=== PATIENT | male | born 1950 | race American Indian/Alaskan Native ===

== ENCOUNTER 2019-05-20 15:18 | Emergency (ER) | payer MEDICARE ==
--- NOTE | 2019-05-20 15:31 | Event Note ---
ED Screening Note Date of service: 05/20/19 Time: 15:27 ED Screening Note: This is a 68 y.o. M. that presents to the ER with decreased appetite, behavioral changes, and refusing to take medication. PMH dementia, bipolar, DM, HLD, schizoaffective disorder This initial assessment/diagnostic orders/clinical plan/treatment(s) is/are subject to change based on patients health status, clinical progression and re- assessment by fellow clinical providers in the ED. Further treatment and workup at subsequent clinical providers discretion. Patient/guardian urged not to elope from the ED as their condition may be serious if not clinically assessed and managed. Initial orders include: Labs
--- NOTE | 2019-05-20 16:40 | Emergency Department Report ---
ED Psych HPI - General Chief Complaint: Psych Stated Complaint: MH Time Seen by Provider: 05/20/19 15:27 Source: patient, family Mode of arrival: Ambulatory - History of Present Illness Initial Comments: 68-year-old male brought in by his daugher reports that he has been acting s trange he's been walking into the johnson attempting to get in the bed and with his grandson and granddaughter and is sexually aggressive towards them. Patient has a past medical history of bipolar disorder disorganized schizophrenia dementia and diabetes. He is currently compliant all his medications per his daughter. -: Gradual Improves With: none Worsens With: none Treatments Prior to Arrival: placed on mental he - Related Data Home Medications Medication Instructions Recorded Confirmed Last Taken Divalproex ER [Depakote ER] 250 mg PO DAILY 05/20/19 06/02/19 Unknown Divalproex ER [Depakote ER] 500 mg PO QHS 05/20/19 06/02/19 Unknown Donepezil [Aricept] 10 mg PO QHS 05/20/19 06/02/19 Unknown Furosemide [Lasix TAB] 40 mg PO BID 05/20/19 06/02/19 Unknown Simvastatin 20 mg PO QHS 05/20/19 06/02/19 Unknown Spironolactone [Aldactone] 12.5 mg PO QDAY 05/20/19 06/02/19 Unknown carvediloL [Coreg] 12.5 mg PO BID 05/20/19 06/02/19 Unknown glipiZIDE [Glucotrol] 5 mg PO BID 05/20/19 06/02/19 Unknown lisinopriL [Zestril TAB] 10 mg PO QDAY 05/20/19 06/02/19 Unknown metFORMIN [Glucophage] 500 mg PO BID 05/20/19 06/02/19 Unknown Previous Rx's Medication Instructions Recorded Last Taken Type PARoxetine [Paxil] 40 mg PO QDAY #60 tablet 05/25/19 Unknown Rx risperiDONE [RisperDAL] 1 mg PO BID #60 tablet 05/25/19 Unknown Rx traZODone [Desyrel] 50 mg PO QHS #30 tablet 05/25/19 Unknown Rx Allergies Allergy/AdvReac Type Severity Reaction Status Date / Time quinidine Allergy Unknown Verified 05/20/19 15:24 ED Review of Systems ROS: Stated complaint: MH Other details as noted in HPI Comment: All other systems reviewed and negative Constitutional: no symptoms reported Respiratory: no symptoms reported Endocrine: no symptoms reported Psychiatric: other. denies: auditory hallucinations, visual hallucinations, homicidal thoughts, suicidal thoughts ED Past Medical Hx - Past Medical History Previous Medical History?: Yes Hx Hypertension: Yes Hx Diabetes: Yes Hx Psychiatric Treatment: Yes (schizoaffective, bipolar) Hx Dementia: Yes Additional medical history: hypercholesterolemia, Insomnia, heart disease - Surgical History Past Surgical History?: Yes Additional Surgical History: aortic valve replacement - Social History Smoking Status: Never Smoker Substance Use Type: None - Medications Home Medications: Home Medications Medication Instructions Recorded Confirmed Last Taken Type Divalproex ER [Depakote ER] 250 mg PO DAILY 05/20/19 06/02/19 Unknown History Divalproex ER [Depakote ER] 500 mg PO QHS 05/20/19 06/02/19 Unknown History Donepezil [Aricept] 10 mg PO QHS 05/20/19 06/02/19 Unknown History Furosemide [Lasix TAB] 40 mg PO BID 05/20/19 06/02/19 Unknown History Simvastatin 20 mg PO QHS 05/20/19 06/02/19 Unknown History Spironolactone [Aldactone] 12.5 mg PO QDAY 05/20/19 06/02/19 Unknown History carvediloL [Coreg] 12.5 mg PO BID 05/20/19 06/02/19 Unknown History glipiZIDE [Glucotrol] 5 mg PO BID 05/20/19 06/02/19 Unknown History lisinopriL [Zestril TAB] 10 mg PO QDAY 05/20/19 06/02/19 Unknown History metFORMIN [Glucophage] 500 mg PO BID 05/20/19 06/02/19 Unknown History PARoxetine [Paxil] 40 mg PO QDAY #60 tablet 05/25/19 06/02/19 Unknown Rx risperiDONE [RisperDAL] 1 mg PO BID #60 tablet 05/25/19 06/02/19 Unknown Rx traZODone [Desyrel] 50 mg PO QHS #30 tablet 05/25/19 06/02/19 Unknown Rx ED Physical Exam - General Limitations: No Limitations General appearance: alert, in no apparent distress - Head Head exam: Present: atraumatic - Eye Eye exam: Present: normal appearance - ENT ENT exam: Present: normal exam - Neck Neck exam: Present: normal inspection - Respiratory Respiratory exam: Present: normal lung sounds bilaterally. Absent: respiratory distress, wheezes, rales, rhonchi - Cardiovascular Cardiovascular Exam: Present: regular rate, normal heart sounds - GI/Abdominal GI/Abdominal exam: Present: soft, normal bowel sounds. Absent: distended, tenderness, guarding, rebound - Rectal Rectal exam: Present: deferred - Extremities Exam Extremities exam: Present: normal inspection - Back Exam Back exam: Present: normal inspection - Neurological Exam Neurological exam: Present: alert (oriented x person and place) - Psychiatric Psychiatric exam: Present: flat affect - Skin Skin exam: Present: warm, dry, intact ED Course Vital Signs 05/20/19 05/20/19 15:27 20:00 Temperature 99.4 F 97.9 F Pulse Rate 64 97 H Respiratory 20 18 Rate Blood Pressure 130/73 Blood Pressure 131/74 [Right] O2 Sat by Pulse 98 96 Oximetry ED Medical Decision Making - Lab Data Result diagrams: 05/20/19 16:31 05/20/19 16:31 - Medical Decision Making 68 yo male with long hx of Bipolar disorder, Schizophrenia, and Diabetes. Resides with his daughter. Daughter reports increasing bizzare behaviour including defecating and wiping on johnson, attempting to get in the bed with his grandson and granddaughter and being sexually aggressive. Placed on Psych hold. Awaiting mental health evaluation. Care endorsed to Dr. Rodriguez. Critical Care Time: No Critical care attestation.: If time is entered above; I have spent that time in minutes in the direct care of this critically ill patient, excluding procedure time. ED Disposition Clinical Impression: Psychosis Qualifiers: Psychosis type: brief psychotic disorder Qualified Code(s): F23 - Brief psychotic disorder Disposition: DC/TX-65 PSY HOSP/PSY UNIT Is pt being admited?: No Does the pt Need Aspirin: No Condition: Stable Referrals: SONAM ELI [Other] - 3-5 Days
[2019-05-20 16:48] LABS: Basophils % (Auto) 0.3 % (0.0-1.8); Eosinophils # (Auto) 0.1 K/mm3 (0.0-0.4); Hematocrit 33.7 % (35.5-45.6); Hemoglobin 11.3 gm/dl (11.8-15.2); Lymphocytes # (Auto) 1.2 K/mm3 (1.2-5.4); Lymphocytes % (Auto) 16.2 % (13.4-35.0); Mean Corpuscular HGB Conc 34 % (32-34); Mean Corpuscular Volume 83 fl (84-94); Monocytes # (Auto) 0.9 K/mm3 (0.0-0.8); Monocytes % (Auto) 12.1 % (0.0-7.3); Platelet Count 254 K/mm3 (140-440); Red Blood Count 4.08 M/mm3 (3.65-5.03); Red Cell Distribution Width 16.6 % (13.2-15.2)
[2019-05-20 17:12] LABS: BUN/Creatinine Ratio 22; Blood Urea Nitrogen 22 mg/dL (9-20); Calcium 9.9 mg/dL (8.4-10.2); Hemolysis Index 9
[2019-05-20] MEDS ORDERED: ACETAMINOPHEN 325 MG TAB PO ONE (17:44)
[2019-05-20 22:50] VITALS: BP 131/74
== END 2019-05-20 22:50 ==
LOC: ED 15:18
DX: F20.1 Disorganized schizophrenia (principal); I10 Essential (primary) hypertension; E11.9 Type 2 diabetes mellitus without complications; F31.9 Bipolar disorder, unspecified; I51.9 Heart disease, unspecified; G47.00 Insomnia, unspecified; Z98.890 Other specified postprocedural states; Z79.899 Other long term (current) drug therapy; Z88.8 Allergy status to other drugs, medicaments and biological substances
CPT/HCPCS: 36415; 80048; 80320; 82962; 85025; G0480

== ENCOUNTER 2019-05-21 01:34 | Inpatient (IN) | payer MEDICARE ==
--- NOTE | 2019-05-21 07:46 | Consultation ---
History of Present Illness - Reason for Consult Consult date: 05/21/19 [employer]NAG[employer] Requesting physician: RYAN PRASAD - History of Present Illness Patient is a 68 year old male with hx of DM, CHF, HTN, HLD, schizophrenia, dementia, Admitted to [facility] for behavioral management. We are consulted to assist in the management. He reports nausea and vomiting. He denies any chest pain, abdominal pain or diarrhea. The nausea and vomiting he is very vague about it, there is no consistency. Treatment Plan Patient will be admitted for inpatient psychiatric evaluation, medication adjustment and close monitoring The patient's behavior, mood, sleep and appetite will be closely monitored. Patient will be enrolled in individual and group therapeutic sessions and encouraged to attend. Patient will be provided with a safe and structured environment. Patient's physical health needs will be addressed by the Hospitalist. Hospitalist Consulted Labs including CBC, CMP, Lipid profile and Hemoglobin A1C ordered Social Assessment will be completed and the [employer] Cartridge Tester will work with patient and family to ensure a suitable and safe disposition Medication adjustment will be made as clinically indicated Usual Wellness Hoahaoism/Preservation: - Start Trazodone 50 mg po QHS & 50 mg po QHS PRN between 10 PM & 2 AM for insomnia The patient agreed on the treatment plan, understood the risk, benefit, alternative treatment, potential consequence of no treatment, and gave informed consent. Past History Past Medical History: diabetes, hypertension, hyperlipidemia Past Surgical History: PTCA, Other Social history: no significant social history Family history: no significant family history Medications and Allergies Allergies Allergy/AdvReac Type Severity Reaction Status Date / Time quinidine Allergy Unknown Verified 05/20/19 15:24 Home Medications Medication Instructions Recorded Confirmed Last Taken Type ARIPiprazole 5 mg PO QDAY 05/20/19 05/21/19 Unknown History Divalproex ER [DepaKOTE ER] 250 mg PO DAILY 05/20/19 05/21/19 Unknown History Divalproex ER [DepaKOTE ER] 500 mg PO QHS 05/20/19 05/21/19 Unknown History Donepezil [Aricept] 10 mg PO QHS 05/20/19 05/21/19 Unknown History Furosemide [Lasix TAB] 40 mg PO BID 05/20/19 05/21/19 Unknown History Lisinopril [Zestril TAB] 10 mg PO QDAY 05/20/19 05/21/19 Unknown History PARoxetine HCl [Paroxetine] 30 mg PO DAILY 05/20/19 05/21/19 Unknown History Simvastatin 20 mg PO QHS 05/20/19 05/21/19 Unknown History Spironolactone [Aldactone] 12.5 mg PO QDAY 05/20/19 05/21/19 Unknown History carvediloL [Coreg] 12.5 mg PO BID 05/20/19 05/21/19 Unknown History glipiZIDE [Glucotrol] 5 mg PO BID 05/20/19 05/21/19 Unknown History metFORMIN [Glucophage] 500 mg PO BID 05/20/19 05/21/19 Unknown History Active Meds: Active Medications Aripiprazole (Aripiprazole) 5 mg PO QDAY [facility] Carvedilol (Coreg) 12.5 mg PO BID [facility] Divalproex Sodium (Depakote Er) 500 mg PO QHS [facility] Divalproex Sodium (Depakote Er) 250 mg PO DAILY [facility] Donepezil HCl (Aricept) 10 mg PO QHS [facility] Furosemide (Lasix) 40 mg PO BID [facility] Glipizide (Glucotrol) 5 mg PO BIDDIAB [facility] Lisinopril (Zestril) 10 mg PO QDAY@0800 [facility] Metformin HCl (Glucophage) 500 mg PO BIDDIAB [facility] Paroxetine HCl (Paxil) 30 mg PO QDAY [facility] Pravastatin Sodium (Pravachol) 40 mg PO QHS [facility] Spironolactone (Aldactone) 12.5 mg PO QDAY [facility] Trazodone HCl (Desyrel) 50 mg PO QHS [facility] Review of Systems All systems: negative Gastrointestinal: nausea, vomiting Exam - Constitutional General appearance: Present: no acute distress, well-nourished - EENT Eyes: Present: PERRL, EOM intact ENT: hearing intact, clear oral mucosa - Neck Neck: Present: supple, normal ROM - Respiratory Respiratory effort: normal Respiratory: bilateral: CTA - Cardiovascular Rhythm: regular Heart Sounds: Present: S1 & S2. Absent: systolic murmur - Extremities Extremities: no ischemia, pulses intact, pulses symmetrical, No edema, normal temperature, normal color, Full ROM Peripheral Pulses: within normal limits - Abdominal General gastrointestinal: Present: soft, non-tender, non-distended - Integumentary Integumentary: Present: clear, warm, dry - Musculoskeletal Musculoskeletal: strength equal bilaterally - Psychiatric Psychiatric: appropriate mood/affect, intact judgment & insight - Neurologic Neurologic: CNII-XII intact, moves all extremities - Allied Health Allied health notes reviewed: nursing, social work Assessment and Plan Patient is a 68 year old male with hx of DM, CHF, HTN, HLD, schizophrenia, dementia, Admitted to [facility] for behavioral management. We are consulted to assist in the management. He reports nausea and vomiting. He denies any chest pain, abdominal pain or diarrhea. The nausea and vomiting he is very vague about it, there is no consistency. Nausea, with vomiting, Probably gastroenteritis-now resolved DM CHF HTN HLD Schizophrenia Plan Continue current home meds Accucheck daily Check cbc and cmp, lipid profil and a1c Further recommendations based on labs Other management per the [facility] team DVT/GI Prophy
[2019-05-21] MEDS: metFORMIN 500 MG TAB PO SCH ×2 (10:15→18:12)
[2019-05-21] MEDS: SPIRONOLACTONE 25 MG TAB PO SCH (10:15)
[2019-05-21] MEDS: LISINOPRIL 10 MG TAB PO SCH (10:16)
[2019-05-21] MEDS: FUROSEMIDE 40 MG TAB PO SCH ×2 (10:16→21:27)
[2019-05-21] MEDS: PARoxetine 10 MG TAB PO SCH (10:16)
[2019-05-21] MEDS: glipiZIDE 5 MG TAB PO SCH ×2 (10:17→18:12)
[2019-05-21] MEDS: carvediloL 12.5 MG TAB PO SCH ×2 (10:17→21:27)
[2019-05-21] MEDS: DIVALPROEX ER 250 MG TAB PO SCH (10:17)
[2019-05-21] MEDS: ARIPiprazole 5 MG TAB PO SCH (10:17)
--- NOTE | 2019-05-21 11:53 | History and Physical Report ---
GP History & Physical - History of Present Illness Date of admission: 05/21/19 Date of Examination: 05/21/19 Reason for Admission: Danger to self Chief Complaint: bizarre, confused, and observed responding to internal stimuli at home History of Present Illness: The patient is a poor historian and unable to give details as to why he was admitted into the hospital. He says his daughter brought him here "because this was the best hosptial." He went on further to say he "vomited." He's A/O to person, and place. PAST PSYCHIATRIC HISTORY: Diagnoses: Schizophrenia, Demenia (per chart) Suicide attempts or Self-harm behavior: Denies Prior psychiatric hospitalizations: Denies Substance Abuse history: Denies Previous psychiatric medications tried: Denies Outpatient treatment: See's outpatient doctor (per nurse note) PAST MEDICAL HISTORY: None reported Family Psychiatric History None reported or documented SOCIAL HISTORY Marital Status: Living Arrangements: With Daughter Employment Status: Disabled Access to guns/weapons: Denies Education: "until about 15 years old" History of Abuse: Denies Legal History: Denies REVIEW OF SYSTEMS Constitutional: Negative for weight loss ENT: Negative for stridor Respiratory: Negative for cough or hemoptysis All other systems reviewed and are negative Diagnoses: Schizophrenia, Dementia Treatment Plan Patient will be admitted for inpatient psychiatric evaluation, medication adjustment and close monitoring The patient's behavior, mood, sleep and appetite will be closely monitored. Patient will be enrolled in individual and group therapeutic sessions and encouraged to attend. Patient will be provided with a safe and structured environment. Patient's physical health needs will be addressed by the Hospitalist. Hospitalist Consulted Labs including CBC, CMP, Lipid profile and Hemoglobin A1C ordered Social Assessment will be completed and the Electrical High Tension Tester will work with patient and family to ensure a suitable and safe disposition Medication adjustment will be made as clinically indicated Usual Wellness Jew/Preservation: - Start Trazodone 50 mg po QHS & 50 mg po QHS PRN between 10 PM & 2 AM for insomnia The patient agreed on the treatment plan, understood the risk, benefit, alternative treatment, potential consequence of no treatment, and gave informed consent. Legal Status: Voluntary Reaction to Hospitalization: Accepting Medications and Allergies Allergies Allergy/AdvReac Type Severity Reaction Status Date / Time quinidine Allergy Unknown Verified 05/20/19 15:24 Home Medications Medication Instructions Recorded Confirmed Last Taken Type ARIPiprazole 5 mg PO QDAY 05/20/19 05/21/19 Unknown History Divalproex ER [DepaKOTE ER] 250 mg PO DAILY 05/20/19 05/21/19 Unknown History Divalproex ER [DepaKOTE ER] 500 mg PO QHS 05/20/19 05/21/19 Unknown History Donepezil [Aricept] 10 mg PO QHS 05/20/19 05/21/19 Unknown History Furosemide [Lasix TAB] 40 mg PO BID 05/20/19 05/21/19 Unknown History Lisinopril [Zestril TAB] 10 mg PO QDAY 05/20/19 05/21/19 Unknown History PARoxetine HCl [Paroxetine] 30 mg PO DAILY 05/20/19 05/21/19 Unknown History Simvastatin 20 mg PO QHS 05/20/19 05/21/19 Unknown History Spironolactone [Aldactone] 12.5 mg PO QDAY 05/20/19 05/21/19 Unknown History carvediloL [Coreg] 12.5 mg PO BID 05/20/19 05/21/19 Unknown History glipiZIDE [Glucotrol] 5 mg PO BID 05/20/19 05/21/19 Unknown History metFORMIN [Glucophage] 500 mg PO BID 05/20/19 05/21/19 Unknown History Active Meds: Active Medications Aripiprazole (Aripiprazole) 5 mg PO QDAY [facility] Last Admin: 05/21/19 10:17 Dose: 5 mg Documented by: Carvedilol (Coreg) 12.5 mg PO BID [facility] Last Admin: 05/21/19 10:17 Dose: 12.5 mg Documented by: Divalproex Sodium (Depakote Er) 500 mg PO QHS [facility] Divalproex Sodium (Depakote Er) 250 mg PO DAILY [facility] Last Admin: 05/21/19 10:17 Dose: 250 mg Documented by: Donepezil HCl (Aricept) 10 mg PO QHS [facility] Furosemide (Lasix) 40 mg PO BID [facility] Last Admin: 05/21/19 10:16 Dose: 40 mg Documented by: Glipizide (Glucotrol) 5 mg PO BIDDIAB [facility] Last Admin: 05/21/19 10:17 Dose: 5 mg Documented by: Lisinopril (Zestril) 10 mg PO QDAY@0800 [facility] Last Admin: 05/21/19 10:16 Dose: 10 mg Documented by: Metformin HCl (Glucophage) 500 mg PO BIDDIAB [facility] Last Admin: 05/21/19 10:15 Dose: 500 mg Documented by: Paroxetine HCl (Paxil) 30 mg PO QDAY [facility] Last Admin: 05/21/19 10:16 Dose: 30 mg Documented by: Pravastatin Sodium (Pravachol) 40 mg PO QHS [facility] Spironolactone (Aldactone) 12.5 mg PO QDAY [facility] Last Admin: 05/21/19 10:15 Dose: 12.5 mg Documented by: Trazodone HCl (Desyrel) 50 mg PO QHS [facility] Substance History - Substance History Drug Use: none Alcohol Use: No (The patient denies use) Past psychiatric history - Past Medical History Past Medical History: hypertension Results - Results Labs/Vitals: Last Vital Signs Temp 98 F 05/21/19 10:17 Pulse 96 H 05/21/19 10:17 Resp 20 05/21/19 10:17 BP 117/62 05/21/19 10:17 Pulse Ox 97 05/21/19 10:17 Physical Examination - Constitutional Vitals: Vital Signs Temp Pulse Resp BP Pulse Ox 98 F 96 H 20 117/62 97 05/21/19 10:17 05/21/19 10:17 05/21/19 10:17 05/21/19 10:17 05/21/19 10:17 Temperature -Last 24 Hours Temperature 98 F General appearance: Present: no acute distress - EENT Eyes: Present: EOM intact ENT: hearing intact, clear oral mucosa - Neck Neck: Present: supple, normal ROM - Respiratory Respiratory effort: normal Mental Status Exam - Vital signs Last Vital Signs Temp 98 F 05/21/19 10:17 Pulse 96 H 05/21/19 10:17 Resp 20 05/21/19 10:17 BP 117/62 05/21/19 10:17 Pulse Ox 97 05/21/19 10:17 Physician Certification - Certification Statement Physician Certification Statement: This is an acknowledgement statement that ALEX CUTLER is a 68 year old M who requires inpatient psychiatric admission for treatment which could reasonably be expected to improve the patient's condition for Estimated period of time patient will need to remain in the hospital: [ ] Plan for post-hospital care: [ ]
[2019-05-21] MEDS: DIVALPROEX ER 500 MG TAB PO SCH (21:27)
[2019-05-21] MEDS: PRAVASTATIN 40 MG TAB PO SCH (21:27)
[2019-05-21] MEDS: traZODone 50 MG TAB PO SCH (21:27)
[2019-05-21] MEDS: DONEPEZIL 10 MG TAB PO SCH (21:27)
[2019-05-21] MEDS ORDERED: DEXTROSE 50% IN WATER (25GM) 50 ML SYRINGE IV PRN (21:36)
[2019-05-21] MEDS ORDERED: INSULIN LISPRO 100 UNIT/ML SUB-Q SCH (22:00)
[2019-05-21] MEDS: INSULIN LISPRO 100 UNIT/ML SUB-Q SCH (22:02)
[2019-05-22] MEDS: FUROSEMIDE 40 MG TAB PO SCH ×2 (06:10→17:34)
[2019-05-22] MEDS: INSULIN LISPRO 100 UNIT/ML SUB-Q SCH ×4 (08:41→22:02)
--- NOTE | 2019-05-22 09:35 | Progress Note ---
Subjective Date of service: 05/22/19 Subjective Comment: Medical records reviewed and patient's progress was discussed with unit staff. Nursing staff states the patient is alert and oriented x3, calm and cooperative, denies SI/HI, denies A/V/H, In my interview with the patient this morning, the patient is lying in bed. Awake. He's oriented x 2. He thinks he's in the "[facility]." He says his night went "fine" and he feels "fine." He says his appetite has been "pretty good." Mr Encarnacion denies any hallucinations. He also denies SI/HI. Review of Symptoms: Constitutional: Negative for weight loss ENT: Negative for stridor Respiratory: Negative for cough or hemoptysis All other systems reviewed and are negative MSE Appearance: Wearing appropriate clothing. In bed Behavior: Pleasant, calm and cooperative. Mood: "fine" Affect: Congruent with stated mood Thought Process: Oriented x 2 Speech: Normal rate. Thought Content Harmfulness Denies SI/HI Hallucinations: patient denies Delusions: none elicited Consciousness: alert. Cognition/Memory: confused Insight/Judgment: Limited. Assessment Psychosis Treatment Plan Due to the psychiatric conditions and treatment listed in the Assessment and Plan - the patient requires continued hospitalization. Will continue inpatient treatment to allow for medication adjustment and monitoring. Will continue q15 min safety checks. Will encourage the use of environmental modifications and non-pharmacologic approaches for the management of behavioral and psychological symptoms. Medication adjustment made today: No changes made to medications Will continue current psych medications Monitor for medication side effects. The patient will continue on medications for physical illnesses, and Hospitalist will closely monitor these Continue intensive physical and occupational therapies. Monitor patient's mood, sleep, appetite, and behavior closely. Encourage patient to participate in individual and group therapeutic sessions on the [place]. Will provide a safe and therapeutic environment for patient. Estimated length of stay 2 days Medications and Allergies Allergies Allergy/AdvReac Type Severity Reaction Status Date / Time quinidine Allergy Unknown Verified 05/20/19 15:24 Home Medications Medication Instructions Recorded Confirmed Last Taken Type ARIPiprazole 5 mg PO QDAY 05/20/19 05/21/19 Unknown History Divalproex ER [DepaKOTE ER] 250 mg PO DAILY 05/20/19 05/21/19 Unknown History Divalproex ER [DepaKOTE ER] 500 mg PO QHS 05/20/19 05/21/19 Unknown History Donepezil [Aricept] 10 mg PO QHS 05/20/19 05/21/19 Unknown History Furosemide [Lasix TAB] 40 mg PO BID 05/20/19 05/21/19 Unknown History Lisinopril [Zestril TAB] 10 mg PO QDAY 05/20/19 05/21/19 Unknown History PARoxetine HCl [Paroxetine] 30 mg PO DAILY 05/20/19 05/21/19 Unknown History Simvastatin 20 mg PO QHS 05/20/19 05/21/19 Unknown History Spironolactone [Aldactone] 12.5 mg PO QDAY 05/20/19 05/21/19 Unknown History carvediloL [Coreg] 12.5 mg PO BID 05/20/19 05/21/19 Unknown History glipiZIDE [Glucotrol] 5 mg PO BID 05/20/19 05/21/19 Unknown History metFORMIN [Glucophage] 500 mg PO BID 05/20/19 05/21/19 Unknown History Active Meds: Active Medications Aripiprazole (Aripiprazole) 5 mg PO QDAY [facility] Last Admin: 05/21/19 10:17 Dose: 5 mg Documented by: Carvedilol (Coreg) 12.5 mg PO BID [facility] Last Admin: 05/21/19 21:27 Dose: 12.5 mg Documented by: Dextrose (D50w (25gm) Syringe) 0 ml IV Q30MIN PRN; Protocol PRN Reason: Hypoglycemia Divalproex Sodium (Depakote Er) 500 mg PO QHS [facility] Last Admin: 05/21/19 21:27 Dose: 500 mg Documented by: Divalproex Sodium (Depakote Er) 250 mg PO DAILY [facility] Last Admin: 05/21/19 10:17 Dose: 250 mg Documented by: Donepezil HCl (Aricept) 10 mg PO QHS [facility] Last Admin: 05/21/19 21:27 Dose: 10 mg Documented by: Furosemide (Lasix) 40 mg PO 0600,1700 [facility] Last Admin: 05/22/19 06:10 Dose: 40 mg Documented by: Glipizide (Glucotrol) 5 mg PO BIDDIAB [facility] Last Admin: 05/21/19 18:12 Dose: 5 mg Documented by: Insulin Human Lispro (Humalog) 0 unit SUB-Q [facility]; Protocol Last Admin: 05/22/19 08:41 Dose: Not Given Documented by: Lisinopril (Zestril) 10 mg PO QDAY@0800 [facility] Last Admin: 05/21/19 10:16 Dose: 10 mg Documented by: Metformin HCl (Glucophage) 500 mg PO BIDDIAB [facility] Last Admin: 05/21/19 18:12 Dose: 500 mg Documented by: Paroxetine HCl (Paxil) 30 mg PO QDAY [facility] Last Admin: 05/21/19 10:16 Dose: 30 mg Documented by: Pravastatin Sodium (Pravachol) 40 mg PO QHS [facility] Last Admin: 05/21/19 21:27 Dose: 40 mg Documented by: Spironolactone (Aldactone) 12.5 mg PO QDAY [facility] Last Admin: 05/21/19 10:15 Dose: 12.5 mg Documented by: Trazodone HCl (Desyrel) 50 mg PO QHS [facility] Last Admin: 05/21/19 21:27 Dose: 50 mg Documented by: Results - Results Labs/Vitals: Laboratory Last Values POC Glucose 120 (70-105) H 05/22/19 06:32 Last Vital Signs Temp 98.2 F 05/21/19 19:46 Pulse 85 05/21/19 21:27 Resp 20 05/21/19 19:46 BP 115/63 05/21/19 21:27 Pulse Ox 100 05/21/19 19:46
[2019-05-22] MEDS: metFORMIN 500 MG TAB PO SCH ×3 (10:06→17:34)
[2019-05-22] MEDS: SPIRONOLACTONE 25 MG TAB PO SCH (10:07)
[2019-05-22] MEDS: LISINOPRIL 10 MG TAB PO SCH (10:07)
[2019-05-22] MEDS: DIVALPROEX ER 250 MG TAB PO SCH (10:08)
[2019-05-22] MEDS: PARoxetine 10 MG TAB PO SCH (10:08)
[2019-05-22] MEDS: glipiZIDE 5 MG TAB PO SCH ×2 (10:08→17:34)
[2019-05-22] MEDS: ARIPiprazole 5 MG TAB PO SCH (10:09)
[2019-05-22] MEDS: carvediloL 12.5 MG TAB PO SCH ×2 (10:09→21:58)
[2019-05-22] MEDS: traZODone 50 MG TAB PO SCH (21:59)
[2019-05-22] MEDS: DIVALPROEX ER 500 MG TAB PO SCH (21:59)
[2019-05-22] MEDS: DONEPEZIL 10 MG TAB PO SCH (22:00)
[2019-05-22] MEDS: PRAVASTATIN 40 MG TAB PO SCH (22:01)
[2019-05-23] MEDS: FUROSEMIDE 40 MG TAB PO SCH ×2 (05:28→18:20)
--- NOTE | 2019-05-23 09:44 | Progress Note ---
Subjective Date of service: 05/23/19 Subjective Comment: Medical records reviewed and patient's progress was discussed with unit staff. Nursing staff states the patient is compliant still unable to give any history into his care. Remains calm cooperative and redirectable. Appetite good and no complaints of pain. In my interview with the patient this morning, the patient is lying in bed. Awake. He is oriented x 3 with periods of confusion. He says his appetite is good and his night went "fine." Mr. Encarnacion denies SI/HI or hallucinations of any kind. He says his mood is "fine" and asked if he was going home. Review of Symptoms: Constitutional: Negative for weight loss ENT: Negative for stridor Respiratory: Negative for cough or hemoptysis All other systems reviewed and are negative MSE Appearance: Wearing appropriate clothing. In bed Behavior: Pleasant, calm and cooperative. Mood: "fine" Affect: Congruent with stated mood Thought Process: Oriented x 2 Speech: Normal rate. Thought Content Harmfulness Denies SI/HI Hallucinations: patient denies Delusions: none elicited Consciousness: alert. Cognition/Memory: confused Insight/Judgment: Limited. Assessment Psychosis Treatment Plan Due to the psychiatric conditions and treatment listed in the Assessment and Plan - the patient requires continued hospitalization. Will continue inpatient treatment to allow for medication adjustment and monitoring. Will continue q15 min safety checks. Will encourage the use of environmental modifications and non-pharmacologic approaches for the management of behavioral and psychological symptoms. Medication adjustment made today: See orders Will continue current psych medications Monitor for medication side effects. The patient will continue on medications for physical illnesses, and Hospitalist will closely monitor these Continue intensive physical and occupational therapies. Monitor patient's mood, sleep, appetite, and behavior closely. Encourage patient to participate in individual and group therapeutic sessions on the [place]. Will provide a safe and therapeutic environment for patient. Estimated length of stay 2 days Medications and Allergies Allergies Allergy/AdvReac Type Severity Reaction Status Date / Time quinidine Allergy Unknown Verified 05/20/19 15:24 Home Medications Medication Instructions Recorded Confirmed Last Taken Type ARIPiprazole 5 mg PO QDAY 05/20/19 05/21/19 Unknown History Divalproex ER [DepaKOTE ER] 250 mg PO DAILY 05/20/19 05/21/19 Unknown History Divalproex ER [DepaKOTE ER] 500 mg PO QHS 05/20/19 05/21/19 Unknown History Donepezil [Aricept] 10 mg PO QHS 05/20/19 05/21/19 Unknown History Furosemide [Lasix TAB] 40 mg PO BID 05/20/19 05/21/19 Unknown History Lisinopril [Zestril TAB] 10 mg PO QDAY 05/20/19 05/21/19 Unknown History PARoxetine HCl [Paroxetine] 30 mg PO DAILY 05/20/19 05/21/19 Unknown History Simvastatin 20 mg PO QHS 05/20/19 05/21/19 Unknown History Spironolactone [Aldactone] 12.5 mg PO QDAY 05/20/19 05/21/19 Unknown History carvediloL [Coreg] 12.5 mg PO BID 05/20/19 05/21/19 Unknown History glipiZIDE [Glucotrol] 5 mg PO BID 05/20/19 05/21/19 Unknown History metFORMIN [Glucophage] 500 mg PO BID 05/20/19 05/21/19 Unknown History Active Meds: Active Medications Aripiprazole (Aripiprazole) 5 mg PO QDAY [facility] Last Admin: 05/22/19 10:09 Dose: 5 mg Documented by: Carvedilol (Coreg) 12.5 mg PO BID [facility] Last Admin: 05/22/19 21:58 Dose: 12.5 mg Documented by: Dextrose (D50w (25gm) Syringe) 0 ml IV Q30MIN PRN; Protocol PRN Reason: Hypoglycemia Divalproex Sodium (Depakote Er) 500 mg PO QHS [facility] Last Admin: 05/22/19 21:59 Dose: 500 mg Documented by: Divalproex Sodium (Depakote Er) 250 mg PO DAILY [facility] Last Admin: 05/22/19 10:08 Dose: 250 mg Documented by: Donepezil HCl (Aricept) 10 mg PO QHS [facility] Last Admin: 05/22/19 22:00 Dose: 10 mg Documented by: Furosemide (Lasix) 40 mg PO 0600,1700 [facility] Last Admin: 05/23/19 05:28 Dose: 40 mg Documented by: Glipizide (Glucotrol) 5 mg PO BIDDIAB [facility] Last Admin: 05/22/19 17:34 Dose: 5 mg Documented by: Insulin Human Lispro (Humalog) [address] [facility]; Protocol Last Admin: 05/22/19 22:02 Dose: Not Given Documented by: Lisinopril (Zestril) 10 mg PO QDAY@0800 [facility] Last Admin: 05/22/19 10:07 Dose: Not Given Documented by: Metformin HCl (Glucophage) 500 mg PO BIDDIAB [facility] Last Admin: 05/22/19 17:34 Dose: 500 mg Documented by: Paroxetine HCl (Paxil) 30 mg PO QDAY [facility] Last Admin: 05/22/19 10:08 Dose: 30 mg Documented by: Pravastatin Sodium (Pravachol) 40 mg PO QHS [facility] Last Admin: 05/22/19 22:01 Dose: 40 mg Documented by: Spironolactone (Aldactone) 12.5 mg PO QDAY [facility] Last Admin: 05/22/19 10:07 Dose: 12.5 mg Documented by: Trazodone HCl (Desyrel) 50 mg PO QHS [facility] Last Admin: 05/22/19 21:59 Dose: 50 mg Documented by: Results - Results Labs/Vitals: Laboratory Last Values POC Glucose 165 (70-105) H 05/23/19 09:14 Last Vital Signs Temp 98.0 F 05/22/19 19:47 Pulse 76 05/22/19 21:58 Resp 20 05/22/19 19:47 BP 144/65 05/22/19 21:58 Pulse Ox 98 05/22/19 19:47
[2019-05-23] MEDS: DIVALPROEX ER 250 MG TAB PO SCH (10:32)
[2019-05-23] MEDS: glipiZIDE 5 MG TAB PO SCH ×2 (10:32→18:44)
[2019-05-23] MEDS: PARoxetine 10 MG TAB PO SCH (10:32)
[2019-05-23] MEDS: metFORMIN 500 MG TAB PO SCH ×2 (10:44→18:20)
[2019-05-23] MEDS: SPIRONOLACTONE 25 MG TAB PO SCH (10:46)
[2019-05-23] MEDS: INSULIN LISPRO 100 UNIT/ML SUB-Q SCH ×4 (10:49→21:38)
[2019-05-23] MEDS: LISINOPRIL 10 MG TAB PO SCH (10:53)
[2019-05-23] MEDS: carvediloL 12.5 MG TAB PO SCH ×2 (12:56→21:19)
[2019-05-23] MEDS: risperiDONE 0.25 MG TAB PO SCH ×2 (12:56→21:18)
[2019-05-23] MEDS: DONEPEZIL 10 MG TAB PO SCH (21:18)
[2019-05-23] MEDS: traZODone 50 MG TAB PO SCH (21:18)
[2019-05-23] MEDS: DIVALPROEX ER 500 MG TAB PO SCH (21:19)
[2019-05-23] MEDS: PRAVASTATIN 40 MG TAB PO SCH (21:19)
[2019-05-24] MEDS: FUROSEMIDE 40 MG TAB PO SCH ×2 (05:45→16:54)
--- NOTE | 2019-05-24 08:42 | Progress Note ---
Subjective Date of service: 05/24/19 Subjective Comment: Medical records reviewed and patient's progress was discussed with unit staff. Nursing staff states the patient is medication compliant, good appetite, able to make needs known, withdrawn to self, no interaction with peers, alert and orien paula x3, calm and cooperative, denies SI/HI, denies A/V/H, denies pain, no behavioral issues In my interview with the patient this morning, the patient is lying in bed. Awake. He is and slighly confused, and answers are very brief. The patient states he feels "fine, I'm just really sleepy." Mr. Encarnacion says he slept good and his appetite is good. He denies SI/HI or hallucinations of any kind. Review of Symptoms: Constitutional: Negative for weight loss ENT: Negative for stridor Respiratory: Negative for cough or hemoptysis All other systems reviewed and are negative MSE Appearance: Wearing appropriate clothing. In bed Behavior: calm and cooperative. Mood: "fine" Affect: Congruent with stated mood Thought Process: Oriented x 2 Speech: Normal rate. Thought Content Harmfulness Denies SI/HI Hallucinations: patient denies Delusions: none elicited Consciousness: alert. Cognition/Memory: confused Insight/Judgment: Limited. Assessment Psychosis Treatment Plan Due to the psychiatric conditions and treatment listed in the Assessment and Plan - the patient requires continued hospitalization. Will continue inpatient treatment to allow for medication adjustment and monitoring. Will continue q15 min safety checks. Will encourage the use of environmental modifications and non-pharmacologic approaches for the management of behavioral and psychological symptoms. Medication adjustment made today: Increased paxil to decrease underlying depression Will continue current psych medications Monitor for medication side effects. The patient will continue on medications for physical illnesses, and Hospitalist will closely monitor these Continue intensive physical and occupational therapies. Monitor patient's mood, sleep, appetite, and behavior closely. Encourage patient to participate in individual and group therapeutic sessions on the [place]. Will provide a safe and therapeutic environment for patient. Estimated length of stay 2 days Medications and Allergies Allergies Allergy/AdvReac Type Severity Reaction Status Date / Time quinidine Allergy Unknown Verified 05/20/19 15:24 Home Medications Medication Instructions Recorded Confirmed Last Taken Type ARIPiprazole 5 mg PO QDAY 05/20/19 05/21/19 Unknown History Divalproex ER [DepaKOTE ER] 250 mg PO DAILY 05/20/19 05/21/19 Unknown History Divalproex ER [DepaKOTE ER] 500 mg PO QHS 05/20/19 05/21/19 Unknown History Donepezil [Aricept] 10 mg PO QHS 05/20/19 05/21/19 Unknown History Furosemide [Lasix TAB] 40 mg PO BID 05/20/19 05/21/19 Unknown History Lisinopril [Zestril TAB] 10 mg PO QDAY 05/20/19 05/21/19 Unknown History PARoxetine HCl [Paroxetine] 30 mg PO DAILY 05/20/19 05/21/19 Unknown History Simvastatin 20 mg PO QHS 05/20/19 05/21/19 Unknown History Spironolactone [Aldactone] 12.5 mg PO QDAY 05/20/19 05/21/19 Unknown History carvediloL [Coreg] 12.5 mg PO BID 05/20/19 05/21/19 Unknown History glipiZIDE [Glucotrol] 5 mg PO BID 05/20/19 05/21/19 Unknown History metFORMIN [Glucophage] 500 mg PO BID 05/20/19 05/21/19 Unknown History Active Meds: Active Medications Carvedilol (Coreg) 12.5 mg PO BID [facility] Last Admin: 05/23/19 21:19 Dose: 12.5 mg Documented by: Dextrose (D50w (25gm) Syringe) 0 ml IV Q30MIN PRN; Protocol PRN Reason: Hypoglycemia Divalproex Sodium (Depakote Er) 500 mg PO QHS [facility] Last Admin: 05/23/19 21:19 Dose: 500 mg Documented by: Divalproex Sodium (Depakote Er) 250 mg PO DAILY [facility] Last Admin: 05/23/19 10:32 Dose: 250 mg Documented by: Donepezil HCl (Aricept) 10 mg PO QHS [facility] Last Admin: 05/23/19 21:18 Dose: 10 mg Documented by: Furosemide (Lasix) 40 mg PO 0600,1700 [facility] Last Admin: 05/24/19 05:45 Dose: 40 mg Documented by: Glipizide (Glucotrol) 5 mg PO BIDDIAB [facility] Last Admin: 05/23/19 18:44 Dose: 5 mg Documented by: Insulin Human Lispro (Humalog) 0 unit SUB-Q [facility]; Protocol Last Admin: 05/23/19 21:38 Dose: Not Given Documented by: Lisinopril (Zestril) 10 mg PO QDAY@0800 [facility] Last Admin: 05/23/19 10:53 Dose: 10 mg Documented by: Metformin HCl (Glucophage) 500 mg PO BIDDIAB [facility] Last Admin: 05/23/19 18:20 Dose: 500 mg Documented by: Paroxetine HCl (Paxil) 30 mg PO QDAY [facility] Last Admin: 05/23/19 10:32 Dose: 30 mg Documented by: Pravastatin Sodium (Pravachol) 40 mg PO QHS [facility] Last Admin: 05/23/19 21:19 Dose: 40 mg Documented by: Risperidone (Risperdal) 1 mg PO BID [facility] Last Admin: 05/23/19 21:18 Dose: 1 mg Documented by: Spironolactone (Aldactone) 12.5 mg PO QDAY [facility] Last Admin: 05/23/19 10:46 Dose: 12.5 mg Documented by: Trazodone HCl (Desyrel) 50 mg PO QHS [facility] Last Admin: 05/23/19 21:18 Dose: 50 mg Documented by: Results - Results Labs/Vitals: Laboratory Last Values POC Glucose 153 (70-105) H 05/24/19 06:25 Last Vital Signs Temp 97.8 F 05/23/19 22:00 Pulse 75 05/23/19 22:00 Resp 18 05/23/19 22:00 BP 144/87 05/23/19 22:00 Pulse Ox 100 05/23/19 22:00
[2019-05-24] MEDS: INSULIN LISPRO 100 UNIT/ML SUB-Q SCH ×4 (09:12→21:27)
[2019-05-24] MEDS: glipiZIDE 5 MG TAB PO SCH ×2 (09:13→16:54)
[2019-05-24] MEDS: metFORMIN 500 MG TAB PO SCH ×2 (09:15→16:54)
[2019-05-24] MEDS: DIVALPROEX ER 250 MG TAB PO SCH (09:17)
[2019-05-24] MEDS: LISINOPRIL 10 MG TAB PO SCH (09:20)
[2019-05-24] MEDS: carvediloL 12.5 MG TAB PO SCH ×2 (09:21→21:25)
[2019-05-24] MEDS: risperiDONE 0.25 MG TAB PO SCH ×2 (09:39→21:25)
[2019-05-24] MEDS: SPIRONOLACTONE 25 MG TAB PO SCH (09:41)
[2019-05-24] MEDS: PARoxetine 20 MG TAB PO SCH (09:42)
[2019-05-24] MEDS: DIVALPROEX ER 500 MG TAB PO SCH (21:24)
[2019-05-24] MEDS: traZODone 50 MG TAB PO SCH (21:24)
[2019-05-24] MEDS: DONEPEZIL 10 MG TAB PO SCH (21:25)
[2019-05-24] MEDS: PRAVASTATIN 40 MG TAB PO SCH (21:25)
[2019-05-25] MEDS: FUROSEMIDE 40 MG TAB PO SCH ×2 (05:38→16:57)
--- NOTE | 2019-05-25 09:20 | Discharge Summary ---
Providers - Providers Date of Admission: 05/21/19 01:50 Date of discharge: 05/25/19 Attending physician: RYAN PRASAD MD 05/21/19 21:37 Consult to Dietitian/Nutrition [CONS] Routine Physician Instructions: Reason For Exam: Reason for Consult: Diet education 05/22/19 08:53 Consult to Physician [CONS] Routine Comment: Consulting Provider: CLAUDIA LOZANO Physician Instructions: MARTA Reason For Exam: H&P/MEDICAL MANAGEMENT Primary care physician: UNIT OPERATOR Hospitalization Reason for admission: bizarre, confused, and observed responding to internal stimuli at home Condition: Stable Hospital course: The patient was provided inpatient psychiatric treatment with safe and supportive environment, group/individual therapy, psychiatric medication, medication adjustment, adverse effect monitor, medical evaluation, medical treatment, social service assessment, social support meeting, placement assessment and psycho-education. The patients mood, cognition, behavior, motivation, compliance to treatment and appreciation on family/social support are improved and stabilized. At the time of discharge, the patient had no suicidal ideas, no homicidal ideas, no aggressive thoughts, no endangering behavior and no debilitating adverse effects. The patient agreed on the treatment plan, understood the risk, benefit, alternative treatment, potential consequence of no treatment, and gave informed consent. Disposition: DC-01 TO HOME OR SELFCARE Time spent for discharge: 34 minutes Allergies/Adverse Reactions: Allergies quinidine Allergy (Verified 05/20/19 15:24) Unknown Vital Signs: Last Vital Signs Temp 98.1 F 05/24/19 19:25 Pulse 109 H 05/24/19 21:25 Resp 17 05/24/19 19:25 BP 129/72 05/24/19 21:25 Pulse Ox 98 05/24/19 19:24 Last Lab: Laboratory Last Values POC Glucose 179 (70-105) H 05/25/19 07:08 Core Measure Documentation - Palliative Care Palliative Care/ Comfort Measures: Not Applicable - Core Measures Any of the following diagnoses?: none Exam - Constitutional Vitals: Temp Pulse Resp BP Pulse Ox 98.1 F 109 H 17 129/72 98 05/24/19 19:25 05/24/19 21:25 05/24/19 19:25 05/24/19 21:25 05/24/19 19:24 General appearance: Present: no acute distress, well-nourished - EENT Eyes: Present: PERRL, EOM intact ENT: hearing intact, clear oral mucosa - Neck Neck: Present: supple, normal ROM - Respiratory Respiratory effort: normal Plan Activity: advance as tolerated Weight Bearing Status: Weight Bear as Tolerated Care Plan Goals: Maintain good and stable mental health Plan of Treatment: The patient should be compliant with medications, not to use drugs and not to drink alcohol. The patient understands that if suicidal ideas, homicidal ideas, or any endangering thoughts arise, the patient should immediately seek for emergent assistance including but not limited to crisis hot line and emergency room. Follow up with outpatient Psychiatrist and PCP within 7 - 14 days of discharge. Health Concerns: none Assessment: acute psychosis Follow up with: PRIMARY CARE, [Primary Care Provider] - 7 Days Prescriptions: traZODone [Desyrel] 50 mg PO QHS #30 tablet PARoxetine [Paxil] 40 mg PO QDAY #60 tablet risperiDONE [RisperDAL] 1 mg PO BID #60 tablet
[2019-05-25 09:32] VITALS: BP 135/68
[2019-05-25] MEDS: INSULIN LISPRO 100 UNIT/ML SUB-Q SCH ×3 (09:33→15:44)
[2019-05-25] MEDS: DIVALPROEX ER 250 MG TAB PO SCH (09:34)
[2019-05-25] MEDS: LISINOPRIL 10 MG TAB PO SCH (09:34)
[2019-05-25] MEDS: metFORMIN 500 MG TAB PO SCH ×2 (09:34→16:57)
[2019-05-25] MEDS: SPIRONOLACTONE 25 MG TAB PO SCH (09:35)
[2019-05-25] MEDS: carvediloL 12.5 MG TAB PO SCH (09:35)
[2019-05-25] MEDS: glipiZIDE 5 MG TAB PO SCH ×2 (09:35→16:57)
[2019-05-25] MEDS: PARoxetine 20 MG TAB PO SCH (09:35)
[2019-05-25] MEDS ORDERED: risperiDONE 1 MG TAB PO SCH (10:00)
== END 2019-05-25 18:12 | disposition home or self-care (01) | DRG 885 ==
LOC: UNDOADMIN 01:34 → 3A 01:34 → 5A 01:50
PROVIDERS: ADMIT Psychiatry & Neurology Psychiatry; ATTEND Psychiatry & Neurology Psychiatry
DX: F23 Brief psychotic disorder (principal); I11.0 Hypertensive heart disease with heart failure; F03.90 Unspecified dementia, unspecified severity, without behavioral disturbance, psychotic disturbance, mood disturbance, and anxiety; E11.9 Type 2 diabetes mellitus without complications; E78.5 Hyperlipidemia, unspecified; I50.9 Heart failure, unspecified; Z98.61 Coronary angioplasty status; Z79.899 Other long term (current) drug therapy
CPT/HCPCS: 36415; 80048; 80320; 82962; 85025; G0378; A9270-GY; G0480; J1815

== ENCOUNTER 2019-05-31 08:57 | Emergency (ER) | payer MEDICARE ==
[2019-05-31 11:43] LABS: Basophils # (Auto) 0.1 K/mm3 (0.0-0.1); Basophils % (Auto) 0.8 % (0.0-1.8); Eosinophils % (Auto) 0.3 % (0.0-4.3); Hematocrit 32.8 % (35.5-45.6); Lymphocytes # (Auto) 1.6 K/mm3 (1.2-5.4); Mean Corpuscular HGB Conc 34 % (32-34); Mean Corpuscular Volume 82 fl (84-94); Monocytes # (Auto) 0.6 K/mm3 (0.0-0.8); Monocytes % (Auto) 7.3 % (0.0-7.3); Platelet Count 307 K/mm3 (140-440); Red Blood Count 3.98 M/mm3 (3.65-5.03); Red Cell Distribution Width 16.2 % (13.2-15.2)
[2019-05-31 12:04] LABS: BUN/Creatinine Ratio 21; Blood Urea Nitrogen 23 mg/dL (9-20); Calcium 9.7 mg/dL (8.4-10.2); Hemolysis Index 62
--- NOTE | 2019-05-31 18:57 | Event Note ---
ED Screening Note ED Screening Note: states he has been having urinary incontinence +visual hallucinations woke up this morning covered in feces for a week no SI no HI PMHx schizophrenia, bipolar, HLD, CAD, aortic valve replacement This initial assessment/diagnostic orders/clinical plan/treatment(s) is/are subject to change based on patients health status, clinical progression and re- assessment by fellow clinical providers in the ED. Further treatment and workup at subsequent clinical providers discretion. Patient/guardian urged not to elope from the ED as their condition may be serious if not clinically assessed and managed. Initial orders include: mental health clearance
[2019-05-31 19:54] LABS: Basophils % (Auto) 0.5 % (0.0-1.8); Eosinophils # (Auto) 0.1 K/mm3 (0.0-0.4); Eosinophils % (Auto) 0.7 % (0.0-4.3); Hematocrit 36.2 % (35.5-45.6); Lymphocytes # (Auto) 2.4 K/mm3 (1.2-5.4); Lymphocytes % (Auto) 34.6 % (13.4-35.0); Mean Corpuscular HGB Conc 33 % (32-34); Mean Corpuscular Volume 83 fl (84-94); Monocytes # (Auto) 0.7 K/mm3 (0.0-0.8); Monocytes % (Auto) 9.7 % (0.0-7.3); Platelet Count 338 K/mm3 (140-440); Red Blood Count 4.37 M/mm3 (3.65-5.03); Red Cell Distribution Width 16.3 % (13.2-15.2)
--- NOTE | 2019-05-31 20:05 | Emergency Department Report ---
HPI - General Chief Complaint: Altered Mental Status Time Seen by Provider: 05/31/19 18:54 - HPI HPI: 68-year-old male presents to the emergency department, brought in by family, for a mental health evaluation. He has a past medical history of dementia, diabetes, hypertension, aortic valve replacement. He has a psychiatric history of schizoaffective disorder, bipolar disorder and insomnia. The patient was recently admitted to the [facility] floor on 05/20 and family says that he is having the same issues as prior to this admission. The patient is often found sitting in his own feces, smearing it on the johnson, soaked in urine, despite the fact that he has the capability of using the restroom. He is very sexually aggressive. The daughters say that he is continuously asking to be driven over to his 's house to engage in sexual relations but "he will be arrested, he has not allowed there." Patient is still dealing with some insomnia issues and did not sleep at all last night. The daughter say that they physically give him his medication each day but are unsure whether or not he actually takes them. The patient denies any suicidal or homicidal ideations. He also denies any hallucinations but one of the daughters says that he was saying this morning that one of his " friends came over to take his comb." ED Past Medical Hx - Past Medical History Hx Hypertension: Yes Hx Diabetes: Yes Hx Renal Disease: No Hx Arthritis: No Hx Seizures: No Hx Psychiatric Treatment: Yes (schizoaffective, bipolar) Hx Dementia: Yes Additional medical history: hypercholesterolemia, Insomnia, heart disease - Surgical History Hx Cholecystectomy: No Hx Appendectomy: No Additional Surgical History: aortic valve replacement - Social History Smoking Status: Never Smoker Substance Use Type: None - Medications Home Medications: Home Medications Medication Instructions Recorded Confirmed Last Taken Type Divalproex ER [Depakote ER] 250 mg PO DAILY 05/20/19 06/01/19 Unknown History Divalproex ER [Depakote ER] 500 mg PO QHS 05/20/19 06/01/19 Unknown History Donepezil [Aricept] 10 mg PO QHS 05/20/19 06/01/19 Unknown History Furosemide [Lasix TAB] 40 mg PO BID 05/20/19 06/01/19 Unknown History Simvastatin 20 mg PO QHS 05/20/19 06/01/19 Unknown History Spironolactone [Aldactone] 12.5 mg PO QDAY 05/20/19 06/01/19 Unknown History carvediloL [Coreg] 12.5 mg PO BID 05/20/19 06/01/19 Unknown History glipiZIDE [Glucotrol] 5 mg PO BID 05/20/19 06/01/19 Unknown History lisinopriL [Zestril TAB] 10 mg PO QDAY 05/20/19 06/01/19 Unknown History metFORMIN [Glucophage] 500 mg PO BID 05/20/19 06/01/19 Unknown History PARoxetine [Paxil] 40 mg PO QDAY #60 tablet 05/25/19 06/01/19 Unknown Rx risperiDONE [RisperDAL] 1 mg PO BID #60 tablet 05/25/19 06/01/19 Unknown Rx traZODone [Desyrel] 50 mg PO QHS #30 tablet 05/25/19 06/01/19 Unknown Rx ED Review of Systems ROS: Stated complaint: COUGH/ACUTE PAIN Other details as noted in HPI Comment: Unobtainable due to pts medical conditions Constitutional: denies: chills, fever Eyes: denies: eye pain, vision change ENT: denies: ear pain, throat pain Respiratory: denies: cough, shortness of breath Cardiovascular: denies: chest pain, palpitations Gastrointestinal: denies: abdominal pain, vomiting Genitourinary: denies: dysuria, discharge Musculoskeletal: denies: back pain, arthralgia Skin: denies: rash, lesions Neurological: denies: headache, weakness Psychiatric: denies: homicidal thoughts, suicidal thoughts Physical Exam - Physical Exam Vital Signs: Vital Signs 05/31/19 05/31/19 09:45 18:52 Temperature 98 F 98.3 F Pulse Rate 95 H 80 Respiratory 18 26 H Rate Blood Pressure 99/46 Blood Pressure 137/73 [left arm] O2 Sat by Pulse 97 96 Oximetry Physical Exam: GENERAL: The patient is well-developed well-nourished. HEENT: Normocephalic. Atraumatic. Patient has moist mucous membranes. EYES: Extraocular motions are intact. NECK: Supple. Trachea is midline CHEST/LUNGS: Clear to auscultation. There is no respiratory distress noted. HEART/CARDIOVASCULAR: Regular. There is no tachycardia. ABDOMEN: Abdomen is soft, nontender. Patient has normal bowel sounds. There is no abdominal distention. SKIN: Skin is warm and dry. NEURO: The patient is awake, alert, and oriented. The patient is cooperative. Normal speech. MUSCULOSKELETAL: There is no tenderness or deformity. There is no evidence of acute injury. ED Course Vital Signs 05/31/19 05/31/19 09:45 18:52 Temperature 98 F 98.3 F Pulse Rate 95 H 80 Respiratory 18 26 H Rate Blood Pressure 99/46 Blood Pressure 137/73 [left arm] O2 Sat by Pulse 97 96 Oximetry ED Medical Decision Making - Lab Data Result diagrams: 05/31/19 19:34 05/31/19 19:34 - EKG Data -: EKG Interpreted by Me EKG shows normal: sinus rhythm, axis, intervals, QRS complexes, ST-T waves Rate: normal - EKG Data When compared to previous EKG there are: previous EKG unavailable Interpretation: normal EKG - Medical Decision Making This patient presents for a mental health evaluation. At the time my examination he is oriented to person, place and time but is sometimes slow to answer. However it appears that his psychiatric symptoms wax and wane. His family says that he has been covered in urine and feces. He has been talking about being visited by people who are known to be . Patient's labs are mostly unremarkable. His vital signs have been stable throughout his ED course thus far. He has been made a ED hold until the morning and the patient be seen by the psychiatric assessment team. - Differential Diagnosis schizophrenia, bipolar disorder, schizoaffective, dementia Critical Care Time: No Critical care attestation.: If time is entered above; I have spent that time in minutes in the direct care of this critically ill patient, excluding procedure time. ED Disposition Clinical Impression: Psychosis Disposition: DC/TX-65 PSY HOSP/PSY UNIT Is pt being admited?: No Condition: Stable Referrals: PRIMARY MD [facility] [Primary Care Provider] - 3-5 Days Time of Disposition: 03:02
[2019-05-31 20:14] LABS: BUN/Creatinine Ratio 23; Blood Urea Nitrogen 25 mg/dL (9-20); Calcium 10.1 mg/dL (8.4-10.2)
[2019-05-31 20:15] LABS: Alanine Aminotransferase 8 units/L (7-56); Albumin 4.7 g/dL (3.9-5); Hemolysis Index 6
[2019-06-01 02:24] LABS: Amphetamine Screen,Urine PRESUMPTIVE NEGATIVE; Bacteria,Urine 1+ /HPF (Negative); Benzodiazepines Screen,Urine PRESUMPTIVE NEGATIVE; Bilirubin,Urine NEG (Negative); Blood,Urine NEG (Negative); Cannabinoid Screen,Urine PRESUMPTIVE NEGATIVE; Cocaine Screen,Urine PRESUMPTIVE NEGATIVE; Color,Urine Yellow (Yellow); Methadone Screen,Urine PRESUMPTIVE NEGATIVE; Opiate Screen,Urine PRESUMPTIVE NEGATIVE; Protein,Urine <15 mg/dL mg/dL (Negative); Sperm,Urine FEW /HPF (NP); Urobilinogen,Urine < 2.0 mg/dL (<2.0)
[2019-06-01 03:44] VITALS: BP 130/66
--- NOTE | 2019-06-01 09:33 | Cat Scan Report ---
CT HEAD WITHOUT CONTRAST INDICATION : Medical Clearance Psych. TECHNIQUE: Axial imaging performed from the skull apex through the skull base without the use of con trast. All CT scans at this location are performed using CT dose reduction for ALARA by means of aut omated exposure control. COMPARISON: None FINDINGS: Parenchyma: No acute intracranial hemorrhage or parenchymal abnormality. No mass or mass effect. Ventricles: Ventricles are enlarged and appear symmetric. Global enlargement of sulci. Soft tissues: Soft tissues including the orbits appear normal. Bones: No acute osseous abnormality. Sinuses: Pronounced mucoperiosteal thickening of the right maxillary sinus. The rest of the sinuses are clear. IMPRESSION: 1. Global cortical atrophy. 2. Right maxillary sinusitis. Signer Name: Syd Mireles MD Signed: 06/01/2019 9:29 AM Workstation Name: [id number]
== END 2019-06-01 11:52 ==
LOC: ED 08:57
DX: F29 Unspecified psychosis not due to a substance or known physiological condition (principal); I10 Essential (primary) hypertension; E11.9 Type 2 diabetes mellitus without complications; F31.9 Bipolar disorder, unspecified; E78.00 Pure hypercholesterolemia, unspecified; Z79.899 Other long term (current) drug therapy; Z79.84 Long term (current) use of oral hypoglycemic drugs; Z88.1 Allergy status to other antibiotic agents
CPT/HCPCS: 36415; 70450; 80048; 80053; 80307; 80320; 81001; 85025; 93005; 93010; G0480

== ENCOUNTER 2019-06-01 10:45 | Inpatient (IN) | payer MEDICARE ==
[2019-06-01] MEDS ORDERED: MELATONIN 5 MG TAB PO PRN (12:04)
[2019-06-01] MEDS ORDERED: OLANzapine ZYDIS 5 MG TAB PO PRN (12:05)
--- NOTE | 2019-06-01 13:00 | History and Physical Report ---
GP History & Physical - History of Present Illness Date of admission: 06/01/19 Reason for Admission: Unable to care for self Chief Complaint: confusion, dementia w/ behavioral disturbances History of Present Illness: Alysha Parrish is a 68 year old male patient who was said to have been brought to the ER by her daughter for confusion, and playing in his feces. He is sitting in the day room eating. The patient is pleasant, calm and cooperative. He is a poor historian. He was unable to give me a clear reason as to why his daughter brought him here. He says his "daughter got info about this place," when asked. When asked about incident of playing in his feces, Mr. Encarnacion laughed and said "no." He was also unable to give any recent medications or treatments. Mr. Encarnacion is a/o x 3. He says he "feels fine." He denies SI/HI or hallucinations of any kind. Mr. Encarnacion says his appetite is "okay." PAST PSYCHIATRIC HISTORY: Diagnoses: Schizoaffective disorder, Bipolar, Dementia w/behavioral disturbances Suicide attempts or Self-harm behavior: Denies Prior psychiatric hospitalizations: x 1 Substance Abuse history: Denies Previous psychiatric medications tried: The patient is unable to say Outpatient treatment: PAST MEDICAL HISTORY: Unable to give history Family Psychiatric History None reported or documented SOCIAL HISTORY Marital Status: Living Arrangements: with daughter Employment Status: disabled Access to guns/weapons: denies Education: "16" History of Abuse: Denies Legal History: Denies REVIEW OF SYSTEMS Constitutional: Negative for weight loss ENT: Negative for stridor Respiratory: Negative for cough or hemoptysis All other systems reviewed and are negative MSE Appearance: Wearing appropriate clothing. Good hygiene Behavior: Pleasant, calm and cooperative. Mood: "Feels fine" Affect: Congruent with stated mood Thought Process: Goal directed Speech: Normal rate. Thought Content Harmfulness Denies SI/HI Hallucinations: patient denies Delusions: none elicited Consciousness: alert. Cognition/Memory: Fair Insight/Judgment: Limited. Diagnoses: Dementia w/Behavioral Disturbances Treatment Plan Patient will be admitted for inpatient psychiatric evaluation, medication adjustment and close monitoring The patient's behavior, mood, sleep and appetite will be closely monitored. Patient will be enrolled in individual and group therapeutic sessions and encouraged to attend. Patient will be provided with a safe and structured environment. Patient's physical health needs will be addressed by the Hospitalist. Hospitalist Consulted Labs including CBC, CMP, TSH, Lipid profile and Hemoglobin A1C ordered Social Assessment will be completed and the [facility] Consultant will work with patient and family to ensure a suitable and safe disposition Medication adjustment will be made as clinically indicated Usual Wellness Gnosticism/Preservation: - Start Trazodone 50 mg po QHS & 50 mg po QHS PRN between 10 PM & 2 AM for insomnia - Start Melatonin 5 mg po QHS to promote circadian rhythm - Risperidone 1mg po BID I have reviewed this treatment plan, including potential risks and benefits of medications, with the patient and/or family members and relevant hospital providers. The patient agreed on the treatment plan, understood the risk, benefit, alternative treatment, potential consequence of no treatment, and gave informed consent. Legal Status: Voluntary Reaction to Hospitalization: Accepting Medications and Allergies Allergies Allergy/AdvReac Type Severity Reaction Status Date / Time quinidine Allergy Unknown Verified 05/20/19 15:24 Home Medications Medication Instructions Recorded Confirmed Last Taken Type Divalproex ER [Depakote ER] 250 mg PO DAILY 05/20/19 06/01/19 Unknown History Divalproex ER [Depakote ER] 500 mg PO QHS 05/20/19 06/01/19 Unknown History Donepezil [Aricept] 10 mg PO QHS 05/20/19 06/01/19 Unknown History Furosemide [Lasix TAB] 40 mg PO BID 05/20/19 06/01/19 Unknown History Simvastatin 20 mg PO QHS 05/20/19 06/01/19 Unknown History Spironolactone [Aldactone] 12.5 mg PO QDAY 05/20/19 06/01/19 Unknown History carvediloL [Coreg] 12.5 mg PO BID 05/20/19 06/01/19 Unknown History glipiZIDE [Glucotrol] 5 mg PO BID 05/20/19 06/01/19 Unknown History lisinopriL [Zestril TAB] 10 mg PO QDAY 05/20/19 06/01/19 Unknown History metFORMIN [Glucophage] 500 mg PO BID 05/20/19 06/01/19 Unknown History PARoxetine [Paxil] 40 mg PO QDAY #60 tablet 05/25/19 06/01/19 Unknown Rx risperiDONE [RisperDAL] 1 mg PO BID #60 tablet 05/25/19 06/01/19 Unknown Rx traZODone [Desyrel] 50 mg PO QHS #30 tablet 05/25/19 06/01/19 Unknown Rx Active Meds: Active Medications Carvedilol (Coreg) 12.5 mg PO BID [facility] Divalproex Sodium (Depakote Er) 250 mg PO DAILY [facility] Divalproex Sodium (Depakote Er) 500 mg PO QHS [facility] Donepezil HCl (Aricept) 10 mg PO QHS [facility] Furosemide (Lasix) 40 mg PO 0600,1800 [facility] Glipizide (Glucotrol) 5 mg PO BIDDIAB [facility] Lisinopril (Zestril) 10 mg PO QDAY [facility] Melatonin (Melatonin) 5 mg PO QHS PRN PRN Reason: Sleep Metformin HCl (Glucophage) 500 mg PO BIDDIAB [facility] Olanzapine (Zyprexa Zydis) 5 mg PO Q6H PRN PRN Reason: Agitation Paroxetine HCl (Paxil) 40 mg PO QDAY [facility] Pravastatin Sodium (Pravachol) 40 mg PO QHS [facility] Risperidone (Risperdal) 1 mg PO BID [facility] Spironolactone (Aldactone) 12.5 mg PO QDAY [facility] Trazodone HCl (Desyrel) 50 mg PO QHS [facility] Physician Certification - Certification Statement Physician Certification Statement: This is an acknowledgement statement that ALEX ENCARNACION is a 68 year old M who requires inpatient psychiatric admission for treatment which could reasonably be expected to improve the patient's condition for Estimated period of time patient will need to remain in the hospital: [ ] Plan for post-hospital care: [ ]
--- NOTE | 2019-06-01 16:05 | Consultation ---
History of Present Illness - Reason for Consult Consult date: 06/01/19 Medical Management Requesting physician: RYAN PRASAD - History of Present Illness 68 YO Male with HTN, DM, Dementia, HLD, Bipolar, Schizophrenia admitted to geriatric psychiatry unit for medical stabilization. Consult placed by Dr. Prasad for medical management. Patient resting comfortably in day room. Patient cooperative. Patient denies fever, chills, chest pain, palpitations, shortness of breath, leg swelling, skin rash, or recent ill contacts. Patient denies any complaints at time of my evaluation and exam. Past History Past Medical History: diabetes, hypertension Past Surgical History: Other (Aortic Valve replacement) Social history: single. denies: smoking, alcohol abuse Family history: hypertension Medications and Allergies Allergies Allergy/AdvReac Type Severity Reaction Status Date / Time quinidine Allergy Unknown Verified 05/20/19 15:24 Home Medications Medication Instructions Recorded Confirmed Last Taken Type Divalproex ER [Depakote ER] 250 mg PO DAILY 05/20/19 06/01/19 Unknown History Divalproex ER [Depakote ER] 500 mg PO QHS 05/20/19 06/01/19 Unknown History Donepezil [Aricept] 10 mg PO QHS 05/20/19 06/01/19 Unknown History Furosemide [Lasix TAB] 40 mg PO BID 05/20/19 06/01/19 Unknown History Simvastatin 20 mg PO QHS 05/20/19 06/01/19 Unknown History Spironolactone [Aldactone] 12.5 mg PO QDAY 05/20/19 06/01/19 Unknown History carvediloL [Coreg] 12.5 mg PO BID 05/20/19 06/01/19 Unknown History glipiZIDE [Glucotrol] 5 mg PO BID 05/20/19 06/01/19 Unknown History lisinopriL [Zestril TAB] 10 mg PO QDAY 05/20/19 06/01/19 Unknown History metFORMIN [Glucophage] 500 mg PO BID 05/20/19 06/01/19 Unknown History PARoxetine [Paxil] 40 mg PO QDAY #60 tablet 05/25/19 06/01/19 Unknown Rx risperiDONE [RisperDAL] 1 mg PO BID #60 tablet 05/25/19 06/01/19 Unknown Rx traZODone [Desyrel] 50 mg PO QHS #30 tablet 05/25/19 06/01/19 Unknown Rx Active Meds: Active Medications Carvedilol (Coreg) 12.5 mg PO BID [facility] Divalproex Sodium (Depakote Er) 250 mg PO DAILY [facility] Divalproex Sodium (Depakote Er) 500 mg PO QHS [facility] Donepezil HCl (Aricept) 10 mg PO QHS [facility] Furosemide (Lasix) 40 mg PO 0600,1800 [facility] Glipizide (Glucotrol) 5 mg PO BIDDIAB [facility] Lisinopril (Zestril) 10 mg PO QDAY [facility] Melatonin (Melatonin) 5 mg PO QHS PRN PRN Reason: Sleep Metformin HCl (Glucophage) 500 mg PO BIDDIAB [facility] Olanzapine (Zyprexa Zydis) 5 mg PO Q6H PRN PRN Reason: Agitation Paroxetine HCl (Paxil) 40 mg PO QDAY [facility] Pravastatin Sodium (Pravachol) 40 mg PO QHS [facility] Risperidone (Risperdal) 1 mg PO BID [facility] Spironolactone (Aldactone) 12.5 mg PO QDAY [facility] Trazodone HCl (Desyrel) 50 mg PO QHS [facility] Review of Systems Constitutional: no weight loss, no weight gain, no fever, no chills Ears, nose, mouth and throat: no ear pain, no ear discharge, no tinnitis, no decreased hearing, no nose pain, no nasal congestion Cardiovascular: no chest pain, no orthopnea, no palpitations, no rapid/irregular heart beat, no edema Respiratory: no cough, no cough with sputum, no excessive sputum, no hemoptysis Gastrointestinal: no nausea, no vomiting, no diarrhea, no constipation Genitourinary Male: no hematuria, no flank pain, no discharge, no urinary frequency, no urinary hesitancy Rectal: no pain, no incontinence, no bleeding Musculoskeletal: no neck stiffness, no neck pain, no shooting arm pain, no arm numbness/tingling, no low back pain Integumentary: no rash, no pruritis, no redness, no sores, no wounds Neurological: no transient paralysis, no paralysis, no weakness, no parathesias, no numbness Psychiatric: no anxiety, no memory loss, no change in sleep habits, no sleep disturbances, no insomnia, no hypersomnia Endocrine: no cold intolerance, no heat intolerance, no polyphagia, no excessive thirst, no polyuria, no nocturia Hematologic/Lymphatic: no easy bruising, no easy bleeding, no lymphadenopathy, no lymphedema Allergic/Immunologic: no urticaria, no allergic rhinitis, no persistent infections, no anaphylaxis Exam - Constitutional General appearance: Present: no acute distress, well-nourished - EENT Eyes: Present: PERRL ENT: hearing intact, clear oral mucosa - Neck Neck: Present: supple, normal ROM - Respiratory Respiratory effort: normal Respiratory: bilateral: CTA - Cardiovascular Heart Sounds: Present: S1 & S2. Absent: rub, click - Extremities Extremities: pulses symmetrical, No edema Peripheral Pulses: within normal limits - Abdominal General gastrointestinal: Present: soft, non-tender, non-distended, normal bowel sounds Male genitourinary: Present: normal - Integumentary Integumentary: Present: clear, warm, dry - Musculoskeletal Musculoskeletal: gait normal, strength equal bilaterally - Psychiatric Psychiatric: appropriate mood/affect, intact judgment & insight - Neurologic Neurologic: CNII-XII intact, moves all extremities Results - Labs CBC & Chem 7: 06/01/19 16:31 06/01/19 16:31 Assessment and Plan - Patient Problems (1) HTN (hypertension) Current Visit: Yes Status: Acute Qualifiers: Hypertension type: essential hypertension Qualified Code(s): I10 - Essential (primary) hypertension Plan to address problem: Monitor blood pressure every shift continue medical management would like with lisinopril, low-sodium diet. (2) HLD (hyperlipidemia) Current Visit: Yes Status: Acute Qualifiers: Hyperlipidemia type: mixed hyperlipidemia Qualified Code(s): E78.2 - Mixed hyperlipidemia Plan to address problem: Continue statin therapy. Low-fat diet, low-cholesterol diet. (3) Diabetes Current Visit: Yes Status: Acute Plan to address problem: Continue current therapy. Glipizide. Consistent carbohydrate diet. (4) Psychosis Current Visit: No Status: Acute Plan to address problem: Continue current therapy. Primary team managing.
[2019-06-01 16:58] LABS: Basophils % (Auto) 0.8 % (0.0-1.8); Eosinophils # (Auto) 0.1 K/mm3 (0.0-0.4); Eosinophils % (Auto) 1.2 % (0.0-4.3); Hematocrit 37.7 % (35.5-45.6); Hemoglobin 12.1 gm/dl (11.8-15.2); Lymphocytes # (Auto) 2.1 K/mm3 (1.2-5.4); Lymphocytes % (Auto) 36.8 % (13.4-35.0); Mean Corpuscular HGB Conc 32 % (32-34); Mean Corpuscular Volume 85 fl (84-94); Monocytes # (Auto) 0.7 K/mm3 (0.0-0.8); Platelet Count 331 K/mm3 (140-440); Red Blood Count 4.45 M/mm3 (3.65-5.03); Red Cell Distribution Width 16.1 % (13.2-15.2)
[2019-06-01 17:04] LABS: Alanine Aminotransferase 9 units/L (7-56); Albumin 4.4 g/dL (3.9-5); BUN/Creatinine Ratio 23; Blood Urea Nitrogen 21 mg/dL (9-20); Chol/HDL Ratio 2.93 %; HDL Cholesterol 48 mg/dL (40-59); Hemolysis Index 5; LDL Cholesterol,Direct 82 mg/dL (50-130)
[2019-06-01] MEDS: FUROSEMIDE 40 MG TAB PO SCH (18:41)
[2019-06-01] MEDS: metFORMIN 500 MG TAB PO SCH (18:41)
[2019-06-01] MEDS: glipiZIDE 5 MG TAB PO SCH (18:41)
[2019-06-01] MEDS: carvediloL 12.5 MG TAB PO SCH (21:47)
[2019-06-01] MEDS: DONEPEZIL 10 MG TAB PO SCH (21:47)
[2019-06-01] MEDS: PRAVASTATIN 40 MG TAB PO SCH (21:47)
[2019-06-01] MEDS: risperiDONE 1 MG TAB PO SCH (21:47)
[2019-06-01] MEDS: traZODone 50 MG TAB PO SCH (21:47)
[2019-06-01] MEDS: DIVALPROEX ER 500 MG TAB PO SCH (21:47)
[2019-06-01] MEDS ORDERED: NON-FORMULARY EACH (Simvastatin [Simvastatin] 20 MG) PO SCH (22:00)
[2019-06-01] MEDS ORDERED: DIVALPROEX ER 250 MG TAB PO SCH (22:00)
[2019-06-01] MEDS ORDERED: risperiDONE 0.25 MG TAB PO SCH (22:00)
[2019-06-02] MEDS: FUROSEMIDE 40 MG TAB PO SCH ×2 (05:29→17:54)
--- NOTE | 2019-06-02 07:52 | Progress Note ---
Subjective Date of service: 06/02/19 Principal diagnosis: Schizoafffective Disorder, Dementia w/Behavioral Disturbance Subjective Comment: Reviewed the patient's medical chart and discussed changes with nursing staff. The nurse note states the patient is medication compliant, good appetite, with drawn to self, calm and cooperative, denies si/hi, denies hearing or seeing things, alert and oriented x3, able to make needs known, no behavioral issue, pt slept throughout the night, no incident, no distress. In my morning interview with the patient he is in bed. Awake. He is pleasant, calm and cooperative. He is A/O x 3. The patient says he was feeling "fine" this morning. He says his appetite is "fine" and he slept well. Mr. Encarncaion denies SI/HI or hallucinations of any kind. Reason for continued hospitalization: Monitoring the patient for sexual aggression and inability to care for himself. During patient's previous admission, his daughter mentioned that he was receiving an injection to decrease his sexual drive. We will confirm and consider re-starting that medication to decrease his sexual aggressive behaviors. Constitutional:Negative for weight loss ENT: Negative for stridor Respiratory: Negative for cough or hemoptysis All systems reviewed and are negative Mental Status Exam Appearance: In bed. Awake. Behavior: Pleasant, calm and cooperative. Mood: "fine" Affect: Congruent with stated mood Thought Process: Goal directed Speech: Normal pace and tone Thought Content Harmfulness Denies SI/HI Hallucinations: patient denies Delusions: None elicited Consciousness: Alert Cognition/Memory: Fair Insight/Judgment: Limited. Assessment Schizoaffective Disorder Dementia w/Behavioral Disturbance Treatment Plan Due to the psychiatric conditions and treatment listed in the Assessment and Plan - the patient requires continued hospitalization. Will continue inpatient treatment to allow for medication adjustment and monitoring. Will continue q15 min safety checks. Will encourage the use of environmental modifications and non-pharmacologic approaches for the management of behavioral and psychological symptoms. Changes made to medication regimen today: None today Monitor for medication side effects. The patient will continue on medications for physical illnesses, and Hospitalist will closely monitor these Continue intensive physical and occupational therapies. Monitor patient's mood, sleep, appetite, and behavior closely. Encourage patient to participate in individual and group therapeutic sessions on the [place]. Will provide a safe and therapeutic environment for patient. Estimated Length of stay: 3 days Medications and Allergies Allergies Allergy/AdvReac Type Severity Reaction Status Date / Time quinidine Allergy Unknown Verified 05/20/19 15:24 Home Medications Medication Instructions Recorded Confirmed Last Taken Type Divalproex ER [Depakote ER] 250 mg PO DAILY 05/20/19 06/02/19 Unknown History Divalproex ER [Depakote ER] 500 mg PO QHS 05/20/19 06/02/19 Unknown History Donepezil [Aricept] 10 mg PO QHS 05/20/19 06/02/19 Unknown History Furosemide [Lasix TAB] 40 mg PO BID 05/20/19 06/02/19 Unknown History Simvastatin 20 mg PO QHS 05/20/19 06/02/19 Unknown History Spironolactone [Aldactone] 12.5 mg PO QDAY 05/20/19 06/02/19 Unknown History carvediloL [Coreg] 12.5 mg PO BID 05/20/19 06/02/19 Unknown History glipiZIDE [Glucotrol] 5 mg PO BID 05/20/19 06/02/19 Unknown History lisinopriL [Zestril TAB] 10 mg PO QDAY 05/20/19 06/02/19 Unknown History metFORMIN [Glucophage] 500 mg PO BID 05/20/19 06/02/19 Unknown History PARoxetine [Paxil] 40 mg PO QDAY #60 tablet 05/25/19 06/02/19 Unknown Rx risperiDONE [RisperDAL] 1 mg PO BID #60 tablet 05/25/19 06/02/19 Unknown Rx traZODone [Desyrel] 50 mg PO QHS #30 tablet 05/25/19 06/02/19 Unknown Rx Active Meds: Active Medications Carvedilol (Coreg) 12.5 mg PO BID [facility] Last Admin: 06/01/19 21:47 Dose: 12.5 mg Documented by: Divalproex Sodium (Depakote Er) 250 mg PO DAILY [facility] Divalproex Sodium (Depakote Er) 500 mg PO QHS [facility] Last Admin: 06/01/19 21:47 Dose: 500 mg Documented by: Donepezil HCl (Aricept) 10 mg PO QHS [facility] Last Admin: 06/01/19 21:47 Dose: 10 mg Documented by: Furosemide (Lasix) 40 mg PO 0600,1800 [facility] Last Admin: 06/02/19 05:29 Dose: 40 mg Documented by: Glipizide (Glucotrol) 5 mg PO BIDDIAB [facility] Last Admin: 06/01/19 18:41 Dose: 5 mg Documented by: Lisinopril (Zestril) 10 mg PO QDAY [facility] Melatonin (Melatonin) 5 mg PO QHS PRN PRN Reason: Sleep Metformin HCl (Glucophage) 500 mg PO BIDDIAB [facility] Last Admin: 06/01/19 18:41 Dose: 500 mg Documented by: Olanzapine (Zyprexa Zydis) 5 mg PO Q6H PRN PRN Reason: Agitation Paroxetine HCl (Paxil) 40 mg PO QDAY [facility] Pravastatin Sodium (Pravachol) 40 mg PO QHS [facility] Last Admin: 06/01/19 21:47 Dose: 40 mg Documented by: Risperidone (Risperdal) 1 mg PO BID [facility] Last Admin: 06/01/19 21:47 Dose: 1 mg Documented by: Spironolactone (Aldactone) 12.5 mg PO QDAY [facility] Trazodone HCl (Desyrel) 50 mg PO QHS [facility] Last Admin: 06/01/19 21:47 Dose: 50 mg Documented by: Results - Results Labs/Vitals: Laboratory Last Values WBC 5.6 K/mm3 (4.5-11.0) 06/01/19 16:31 RBC 4.45 M/mm3 (3.65-5.03) 06/01/19 16:31 Hgb 12.1 gm/dl (11.8-15.2) 06/01/19 16:31 Hct 37.7 % (35.5-45.6) 06/01/19 16:31 MCV 85 fl (84-94) 06/01/19 16:31 MCH 27 pg (28-32) L 06/01/19 16:31 MCHC 32 % (32-34) 06/01/19 16:31 RDW 16.1 % (13.2-15.2) H 06/01/19 16:31 Plt Count 331 K/mm3 (140-440) 06/01/19 16:31 Lymph % (Auto) 36.8 % (13.4-35.0) H 06/01/19 16:31 [place] % (Auto) 12.0 % (0.0-7.3) H 06/01/19 16:31 Eos % (Auto) 1.2 % (0.0-4.3) 06/01/19 16:31 Baso % (Auto) 0.8 % (0.0-1.8) 06/01/19 16:31 Lymph # 2.1 K/mm3 (1.2-5.4) 06/01/19 16:31 [place] # 0.7 K/mm3 (0.0-0.8) 06/01/19 16:31 Eos # 0.1 K/mm3 (0.0-0.4) 06/01/19 16:31 Baso # 0.0 K/mm3 (0.0-0.1) 06/01/19 16:31 Seg Neutrophils % 49.2 % (40.0-70.0) 06/01/19 16:31 Seg Neutrophils # 2.8 K/mm3 (1.8-7.7) 06/01/19 16:31 Sodium 141 mmol/L (137-145) 06/01/19 16:31 Potassium 4.4 mmol/L (3.6-5.0) 06/01/19 16:31 Chloride 99.9 mmol/L (98-107) 06/01/19 16:31 Carbon Dioxide 24 mmol/L (22-30) 06/01/19 16:31 Anion Gap 22 mmol/L 06/01/19 16:31 BUN 21 mg/dL (9-20) H 06/01/19 16:31 Creatinine 0.9 mg/dL (0.8-1.5) 06/01/19 16:31 Estimated GFR > 60 ml/min 06/01/19 16:31 BUN/Creatinine Ratio 23 % 06/01/19 16:31 Glucose 141 mg/dL (75-100) H 06/01/19 16:31 POC Glucose 137 (70-105) H 06/02/19 06:43 Hemoglobin A1c 7.8 % (4-6) H 06/01/19 16:31 Calcium 10.0 mg/dL (8.4-10.2) 06/01/19 16:31 Total Bilirubin 0.20 mg/dL (0.1-1.2) 06/01/19 16:31 AST 18 units/L (5-40) 06/01/19 16:31 ALT 9 units/L (7-56) 06/01/19 16:31 Alkaline Phosphatase 60 units/L (35-129) 06/01/19 16:31 Total Protein 8.2 g/dL (6.3-8.2) 06/01/19 16:31 Albumin 4.4 g/dL (3.9-5) 06/01/19 16:31 Albumin/Globulin Ratio 1.2 % 06/01/19 16:31 Triglycerides 78 mg/dL (2-149) 06/01/19 16:31 Cholesterol 141 mg/dL (50-199) 06/01/19 16:31 LDL Cholesterol Direct 82 mg/dL (50-130) 06/01/19 16:31 HDL Cholesterol 48 mg/dL (40-59) 06/01/19 16:31 Cholesterol/HDL Ratio 2.93 % 06/01/19 16:31 TSH 0.907 mlU/mL (0.270-4.200) 06/01/19 16:31 Last Vital Signs Temp 98.4 F 06/01/19 22:00 Pulse 97 H 06/01/19 22:00 Resp 18 06/01/19 22:00 BP 115/83 06/01/19 22:00 Pulse Ox 98 06/01/19 22:00
[2019-06-02] MEDS: metFORMIN 500 MG TAB PO SCH ×2 (08:02→16:46)
[2019-06-02] MEDS: glipiZIDE 5 MG TAB PO SCH ×2 (08:02→16:48)
[2019-06-02] MEDS: LISINOPRIL 10 MG TAB PO SCH (10:07)
[2019-06-02] MEDS: SPIRONOLACTONE 25 MG TAB PO SCH (10:07)
[2019-06-02] MEDS: carvediloL 12.5 MG TAB PO SCH ×2 (10:07→21:24)
[2019-06-02] MEDS: risperiDONE 1 MG TAB PO SCH ×2 (10:08→21:24)
[2019-06-02] MEDS: PARoxetine 20 MG TAB PO SCH (10:08)
[2019-06-02] MEDS: DIVALPROEX ER 250 MG TAB PO SCH (10:08)
[2019-06-02] MEDS: DONEPEZIL 10 MG TAB PO SCH (21:23)
[2019-06-02] MEDS: traZODone 50 MG TAB PO SCH (21:23)
[2019-06-02] MEDS: PRAVASTATIN 40 MG TAB PO SCH (21:23)
[2019-06-02] MEDS: DIVALPROEX ER 500 MG TAB PO SCH (21:24)
[2019-06-03] MEDS: FUROSEMIDE 40 MG TAB PO SCH ×2 (05:56→17:10)
--- NOTE | 2019-06-03 07:59 | Progress Note ---
Subjective Date of service: 06/03/19 Principal diagnosis: Schizoafffective Disorder, Dementia w/Behavioral Disturbance Subjective Comment: Reviewed the patient's medical chart and discussed changes with nursing staff. The nurse note states the patient was quiet but cooperative this evening. He n eeded some reorientation and could not remember the location of his room. In my morning interview with the patient he is in bed. Awake. He is pleasant, calm and cooperative. He is A/O x 3. The patient says his night was "fine." He says his mood and appetite are both "okay." Mr. Encarnacion denies SI/HI or hallucinations of any kind. He also denies any fear or reservations of being discharged home. Reason for continued hospitalization: Monitoring the patient for sexual aggression and ability to care for himself Review of systems Constitutional:Negative for weight loss ENT: Negative for stridor Respiratory: Negative for cough or hemoptysis All systems reviewed and are negative Mental Status Exam Appearance: In bed. Awake. Behavior: Pleasant, calm and cooperative. Mood: "fine" Affect: Congruent with stated mood Thought Process: Goal directed Speech: Normal pace and tone Thought Content Harmfulness Denies SI/HI Hallucinations: patient denies Delusions: None elicited Consciousness: Alert Cognition/Memory: Fair Insight/Judgment: Limited. Assessment Schizoaffective Disorder Dementia w/Behavioral Disturbance Treatment Plan Due to the psychiatric conditions and treatment listed in the Assessment and Plan - the patient requires continued hospitalization. Will continue inpatient treatment to allow for medication adjustment and monitoring. Will continue q15 min safety checks. Will encourage the use of environmental modifications and non-pharmacologic approaches for the management of behavioral and psychological symptoms. Changes made to medication regimen today: None today Monitor for medication side effects. The patient will continue on medications for physical illnesses, and Hospitalist will closely monitor these Continue intensive physical and occupational therapies. Monitor patient's mood, sleep, appetite, and behavior closely. Encourage patient to participate in individual and group therapeutic sessions on the [place]. Will provide a safe and therapeutic environment for patient. Estimated Length of stay: 1 to 2 days Medications and Allergies Allergies Allergy/AdvReac Type Severity Reaction Status Date / Time quinidine Allergy Unknown Verified 05/20/19 15:24 Home Medications Medication Instructions Recorded Confirmed Last Taken Type Divalproex ER [Depakote ER] 250 mg PO DAILY 05/20/19 06/02/19 Unknown History Divalproex ER [Depakote ER] 500 mg PO QHS 05/20/19 06/02/19 Unknown History Donepezil [Aricept] 10 mg PO QHS 05/20/19 06/02/19 Unknown History Furosemide [Lasix TAB] 40 mg PO BID 05/20/19 06/02/19 Unknown History Simvastatin 20 mg PO QHS 05/20/19 06/02/19 Unknown History Spironolactone [Aldactone] 12.5 mg PO QDAY 05/20/19 06/02/19 Unknown History carvediloL [Coreg] 12.5 mg PO BID 05/20/19 06/02/19 Unknown History glipiZIDE [Glucotrol] 5 mg PO BID 05/20/19 06/02/19 Unknown History lisinopriL [Zestril TAB] 10 mg PO QDAY 05/20/19 06/02/19 Unknown History metFORMIN [Glucophage] 500 mg PO BID 05/20/19 06/02/19 Unknown History PARoxetine [Paxil] 40 mg PO QDAY #60 tablet 05/25/19 06/02/19 Unknown Rx risperiDONE [RisperDAL] 1 mg PO BID #60 tablet 05/25/19 06/02/19 Unknown Rx traZODone [Desyrel] 50 mg PO QHS #30 tablet 05/25/19 06/02/19 Unknown Rx Active Meds: Active Medications Carvedilol (Coreg) 12.5 mg PO BID [facility] Last Admin: 06/02/19 21:24 Dose: 12.5 mg Documented by: Divalproex Sodium (Depakote Er) 250 mg PO DAILY [facility] Last Admin: 06/02/19 10:08 Dose: 250 mg Documented by: Divalproex Sodium (Depakote Er) 500 mg PO QHS [facility] Last Admin: 06/02/19 21:24 Dose: 500 mg Documented by: Donepezil HCl (Aricept) 10 mg PO QHS [facility] Last Admin: 06/02/19 21:23 Dose: 10 mg Documented by: Furosemide (Lasix) 40 mg PO 0600,1800 [facility] Last Admin: 06/03/19 05:56 Dose: 40 mg Documented by: Glipizide (Glucotrol) 5 mg PO BIDDIAB [facility] Last Admin: 06/02/19 16:48 Dose: 5 mg Documented by: Lisinopril (Zestril) 10 mg PO QDAY [facility] Last Admin: 06/02/19 10:07 Dose: 10 mg Documented by: Melatonin (Melatonin) 5 mg PO QHS PRN PRN Reason: Sleep Metformin HCl (Glucophage) 500 mg PO BIDDIAB [facility] Last Admin: 06/02/19 16:46 Dose: 500 mg Documented by: Olanzapine (Zyprexa Zydis) 5 mg PO Q6H PRN PRN Reason: Agitation Paroxetine HCl (Paxil) 40 mg PO QDAY [facility] Last Admin: 06/02/19 10:08 Dose: 40 mg Documented by: Pravastatin Sodium (Pravachol) 40 mg PO QHS [facility] Last Admin: 06/02/19 21:23 Dose: 40 mg Documented by: Risperidone (Risperdal) 1 mg PO BID [facility] Last Admin: 06/02/19 21:24 Dose: 1 mg Documented by: Spironolactone (Aldactone) 12.5 mg PO QDAY [facility] Last Admin: 06/02/19 10:07 Dose: 12.5 mg Documented by: Trazodone HCl (Desyrel) 50 mg PO QHS [facility] Last Admin: 06/02/19 21:23 Dose: 50 mg Documented by: Results - Results Labs/Vitals: Laboratory Last Values WBC 5.6 K/mm3 (4.5-11.0) 06/01/19 16:31 RBC 4.45 M/mm3 (3.65-5.03) 06/01/19 16:31 Hgb 12.1 gm/dl (11.8-15.2) 06/01/19 16:31 Hct 37.7 % (35.5-45.6) 06/01/19 16:31 MCV 85 fl (84-94) 06/01/19 16:31 MCH 27 pg (28-32) L 06/01/19 16:31 MCHC 32 % (32-34) 06/01/19 16:31 RDW 16.1 % (13.2-15.2) H 06/01/19 16:31 Plt Count 331 K/mm3 (140-440) 06/01/19 16:31 Lymph % (Auto) 36.8 % (13.4-35.0) H 06/01/19 16:31 [place] % (Auto) 12.0 % (0.0-7.3) H 06/01/19 16:31 Eos % (Auto) 1.2 % (0.0-4.3) 06/01/19 16:31 Baso % (Auto) 0.8 % (0.0-1.8) 06/01/19 16:31 Lymph # 2.1 K/mm3 (1.2-5.4) 06/01/19 16:31 [place] # 0.7 K/mm3 (0.0-0.8) 06/01/19 16:31 Eos # 0.1 K/mm3 (0.0-0.4) 06/01/19 16:31 Baso # 0.0 K/mm3 (0.0-0.1) 06/01/19 16:31 Seg Neutrophils % 49.2 % (40.0-70.0) 06/01/19 16:31 Seg Neutrophils # 2.8 K/mm3 (1.8-7.7) 06/01/19 16:31 Sodium 141 mmol/L (137-145) 06/01/19 16:31 Potassium 4.4 mmol/L (3.6-5.0) 06/01/19 16:31 Chloride 99.9 mmol/L (98-107) 06/01/19 16:31 Carbon Dioxide 24 mmol/L (22-30) 06/01/19 16:31 Anion Gap 22 mmol/L 06/01/19 16:31 BUN 21 mg/dL (9-20) H 06/01/19 16:31 Creatinine 0.9 mg/dL (0.8-1.5) 06/01/19 16:31 Estimated GFR > 60 ml/min 06/01/19 16:31 BUN/Creatinine Ratio 23 % 06/01/19 16:31 Glucose 141 mg/dL (75-100) H 06/01/19 16:31 POC Glucose 135 (70-105) H 06/02/19 20:10 Hemoglobin A1c 7.8 % (4-6) H 06/01/19 16:31 Calcium 10.0 mg/dL (8.4-10.2) 06/01/19 16:31 Total Bilirubin 0.20 mg/dL (0.1-1.2) 06/01/19 16:31 AST 18 units/L (5-40) 06/01/19 16:31 ALT 9 units/L (7-56) 06/01/19 16:31 Alkaline Phosphatase 60 units/L (35-129) 06/01/19 16:31 Total Protein 8.2 g/dL (6.3-8.2) 06/01/19 16:31 Albumin 4.4 g/dL (3.9-5) 06/01/19 16:31 Albumin/Globulin Ratio 1.2 % 06/01/19 16:31 Triglycerides 78 mg/dL (2-149) 06/01/19 16:31 Cholesterol 141 mg/dL (50-199) 06/01/19 16:31 LDL Cholesterol Direct 82 mg/dL (50-130) 06/01/19 16:31 HDL Cholesterol 48 mg/dL (40-59) 06/01/19 16:31 Cholesterol/HDL Ratio 2.93 % 06/01/19 16:31 TSH 0.907 mlU/mL (0.270-4.200) 06/01/19 16:31 Last Vital Signs Temp 98.5 F 06/02/19 19:40 Pulse 63 06/02/19 19:40 Resp 17 06/02/19 19:40 BP 109/55 06/02/19 19:40 Pulse Ox 100 06/02/19 19:40
[2019-06-03] MEDS: metFORMIN 500 MG TAB PO SCH ×2 (09:23→16:06)
[2019-06-03] MEDS: glipiZIDE 5 MG TAB PO SCH ×2 (09:23→17:10)
[2019-06-03] MEDS: PARoxetine 20 MG TAB PO SCH (09:55)
[2019-06-03] MEDS: SPIRONOLACTONE 25 MG TAB PO SCH (09:57)
[2019-06-03] MEDS: LISINOPRIL 10 MG TAB PO SCH (10:00)
[2019-06-03] MEDS: carvediloL 12.5 MG TAB PO SCH ×2 (10:01→21:24)
[2019-06-03] MEDS: DIVALPROEX ER 250 MG TAB PO SCH (10:01)
[2019-06-03] MEDS: risperiDONE 1 MG TAB PO SCH ×2 (10:01→21:24)
[2019-06-03] MEDS: PRAVASTATIN 40 MG TAB PO SCH (21:23)
[2019-06-03] MEDS: traZODone 50 MG TAB PO SCH (21:23)
[2019-06-03] MEDS: DIVALPROEX ER 500 MG TAB PO SCH (21:24)
[2019-06-03] MEDS: DONEPEZIL 10 MG TAB PO SCH (21:24)
[2019-06-04] MEDS: FUROSEMIDE 40 MG TAB PO SCH ×2 (06:22→17:22)
[2019-06-04] MEDS: glipiZIDE 5 MG TAB PO SCH ×2 (08:01→16:36)
[2019-06-04] MEDS: metFORMIN 500 MG TAB PO SCH ×2 (08:01→16:36)
--- NOTE | 2019-06-04 08:43 | Progress Note ---
Subjective Date of service: 06/04/19 Principal diagnosis: Schizoafffective Disorder, Dementia w/Behavioral Disturbance Subjective Comment: Reviewed the patient's medical chart and discussed changes with nursing staff. The nurse note states the patient was calm and cooperative throughout this [place]; able to follow the unit rules and expectation, and was medication compliant. Pt exhibited no negative behavior at all and also denied any pain. Pt remained ambulatory with steady gait In my morning interview with the patient he is in bed. Awake. He is pleasant, calm and cooperative. He is A/O x 3. He makes minimum eye contact. He says his mood is "fine" and he slept "fine." The patient is asking if he's going home. The patient says he did not remember why he was brought to the hospital. When informed of situation that caused him to be admitted, the patient replied, "my mind was cloudy then. It's not any more." He denies SI/HI, he also denies hallucinations of any kind. He denies any problems with his appetite. Reason for continued hospitalization: Monitoring the patient for sexual aggression and ability to care for himself Constitutional:Negative for weight loss ENT: Negative for stridor Respiratory: Negative for cough or hemoptysis All systems reviewed and are negative Mental Status Exam Appearance: In bed. Awake. Behavior: Pleasant, calm and cooperative. Mood: "fine" Affect: Congruent with stated mood Thought Process: Goal directed Speech: Normal pace and tone Thought Content Harmfulness Denies SI/HI Hallucinations: patient denies Delusions: None elicited Consciousness: Alert Cognition/Memory: Fair Insight/Judgment: Limited. Assessment Schizoaffective Disorder Dementia w/Behavioral Disturbance Treatment Plan Due to the psychiatric conditions and treatment listed in the Assessment and Plan - the patient requires continued hospitalization. Will continue inpatient treatment to allow for medication adjustment and monitoring. Will continue q15 min safety checks. Will encourage the use of environmental modifications and non-pharmacologic approaches for the management of behavioral and psychological symptoms. Changes made to medication regimen today: None today Monitor for medication side effects. The patient will continue on medications for physical illnesses, and Hospitalist will closely monitor these Continue intensive physical and occupational therapies. Monitor patient's mood, sleep, appetite, and behavior closely. Encourage patient to participate in individual and group therapeutic sessions on the [place]. Will provide a safe and therapeutic environment for patient. Estimated Length of stay: 1 to 2 days Medications and Allergies Allergies Allergy/AdvReac Type Severity Reaction Status Date / Time quinidine Allergy Unknown Verified 05/20/19 15:24 Home Medications Medication Instructions Recorded Confirmed Last Taken Type Divalproex ER [Depakote ER] 250 mg PO DAILY 05/20/19 06/02/19 Unknown History Divalproex ER [Depakote ER] 500 mg PO QHS 05/20/19 06/02/19 Unknown History Donepezil [Aricept] 10 mg PO QHS 05/20/19 06/02/19 Unknown History Furosemide [Lasix TAB] 40 mg PO BID 05/20/19 06/02/19 Unknown History Simvastatin 20 mg PO QHS 05/20/19 06/02/19 Unknown History Spironolactone [Aldactone] 12.5 mg PO QDAY 05/20/19 06/02/19 Unknown History carvediloL [Coreg] 12.5 mg PO BID 05/20/19 06/02/19 Unknown History glipiZIDE [Glucotrol] 5 mg PO BID 05/20/19 06/02/19 Unknown History lisinopriL [Zestril TAB] 10 mg PO QDAY 05/20/19 06/02/19 Unknown History metFORMIN [Glucophage] 500 mg PO BID 05/20/19 06/02/19 Unknown History PARoxetine [Paxil] 40 mg PO QDAY #60 tablet 05/25/19 06/02/19 Unknown Rx risperiDONE [RisperDAL] 1 mg PO BID #60 tablet 05/25/19 06/02/19 Unknown Rx traZODone [Desyrel] 50 mg PO QHS #30 tablet 05/25/19 06/02/19 Unknown Rx Active Meds: Active Medications Carvedilol (Coreg) 12.5 mg PO BID [facility] Last Admin: 06/03/19 21:24 Dose: 12.5 mg Documented by: Divalproex Sodium (Depakote Er) 250 mg PO DAILY [facility] Last Admin: 06/03/19 10:01 Dose: 250 mg Documented by: Divalproex Sodium (Depakote Er) 500 mg PO QHS [facility] Last Admin: 06/03/19 21:24 Dose: 500 mg Documented by: Donepezil HCl (Aricept) 10 mg PO QHS [facility] Last Admin: 06/03/19 21:24 Dose: 10 mg Documented by: Furosemide (Lasix) 40 mg PO 0600,1800 [facility] Last Admin: 06/04/19 06:22 Dose: 40 mg Documented by: Glipizide (Glucotrol) 5 mg PO BIDDIAB [facility] Last Admin: 06/04/19 08:01 Dose: 5 mg Documented by: Lisinopril (Zestril) 10 mg PO QDAY [facility] Last Admin: 06/03/19 10:00 Dose: 10 mg Documented by: Melatonin (Melatonin) 5 mg PO QHS PRN PRN Reason: Sleep Metformin HCl (Glucophage) 500 mg PO BIDDIAB [facility] Last Admin: 06/04/19 08:01 Dose: 500 mg Documented by: Olanzapine (Zyprexa Zydis) 5 mg PO Q6H PRN PRN Reason: Agitation Paroxetine HCl (Paxil) 40 mg PO QDAY [facility] Last Admin: 06/03/19 09:55 Dose: 40 mg Documented by: Pravastatin Sodium (Pravachol) 40 mg PO QHS [facility] Last Admin: 06/03/19 21:23 Dose: 40 mg Documented by: Risperidone (Risperdal) 1 mg PO BID [facility] Last Admin: 06/03/19 21:24 Dose: 1 mg Documented by: Spironolactone (Aldactone) 12.5 mg PO QDAY [facility] Last Admin: 06/03/19 09:57 Dose: 12.5 mg Documented by: Trazodone HCl (Desyrel) 50 mg PO QHS [facility] Last Admin: 06/03/19 21:23 Dose: 50 mg Documented by: Results - Results Labs/Vitals: Laboratory Last Values WBC 5.6 K/mm3 (4.5-11.0) 06/01/19 16:31 RBC 4.45 M/mm3 (3.65-5.03) 06/01/19 16:31 Hgb 12.1 gm/dl (11.8-15.2) 06/01/19 16:31 Hct 37.7 % (35.5-45.6) 06/01/19 16:31 MCV 85 fl (84-94) 06/01/19 16:31 MCH 27 pg (28-32) L 06/01/19 16:31 MCHC 32 % (32-34) 06/01/19 16:31 RDW 16.1 % (13.2-15.2) H 06/01/19 16:31 Plt Count 331 K/mm3 (140-440) 06/01/19 16:31 Lymph % (Auto) 36.8 % (13.4-35.0) H 06/01/19 16:31 [place] % (Auto) 12.0 % (0.0-7.3) H 06/01/19 16:31 Eos % (Auto) 1.2 % (0.0-4.3) 06/01/19 16:31 Baso % (Auto) 0.8 % (0.0-1.8) 06/01/19 16:31 Lymph # 2.1 K/mm3 (1.2-5.4) 06/01/19 16:31 [place] # 0.7 K/mm3 (0.0-0.8) 06/01/19 16:31 Eos # 0.1 K/mm3 (0.0-0.4) 06/01/19 16:31 Baso # 0.0 K/mm3 (0.0-0.1) 06/01/19 16:31 Seg Neutrophils % 49.2 % (40.0-70.0) 06/01/19 16:31 Seg Neutrophils # 2.8 K/mm3 (1.8-7.7) 06/01/19 16:31 Sodium 141 mmol/L (137-145) 06/01/19 16:31 Potassium 4.4 mmol/L (3.6-5.0) 06/01/19 16:31 Chloride 99.9 mmol/L (98-107) 06/01/19 16:31 Carbon Dioxide 24 mmol/L (22-30) 06/01/19 16:31 Anion Gap 22 mmol/L 06/01/19 16:31 BUN 21 mg/dL (9-20) H 06/01/19 16:31 Creatinine 0.9 mg/dL (0.8-1.5) 06/01/19 16:31 Estimated GFR > 60 ml/min 06/01/19 16:31 BUN/Creatinine Ratio 23 % 06/01/19 16:31 Glucose 141 mg/dL (75-100) H 06/01/19 16:31 POC Glucose 152 (70-105) H 06/04/19 07:34 Hemoglobin A1c 7.8 % (4-6) H 06/01/19 16:31 Calcium 10.0 mg/dL (8.4-10.2) 06/01/19 16:31 Total Bilirubin 0.20 mg/dL (0.1-1.2) 06/01/19 16:31 AST 18 units/L (5-40) 06/01/19 16:31 ALT 9 units/L (7-56) 06/01/19 16:31 Alkaline Phosphatase 60 units/L (35-129) 06/01/19 16:31 Total Protein 8.2 g/dL (6.3-8.2) 06/01/19 16:31 Albumin 4.4 g/dL (3.9-5) 06/01/19 16:31 Albumin/Globulin Ratio 1.2 % 06/01/19 16:31 Triglycerides 78 mg/dL (2-149) 06/01/19 16:31 Cholesterol 141 mg/dL (50-199) 06/01/19 16:31 LDL Cholesterol Direct 82 mg/dL (50-130) 06/01/19 16:31 HDL Cholesterol 48 mg/dL (40-59) 06/01/19 16:31 Cholesterol/HDL Ratio 2.93 % 06/01/19 16:31 TSH 0.907 mlU/mL (0.270-4.200) 06/01/19 16:31 Last Vital Signs Temp 98.3 F 06/03/19 22:00 Pulse 77 06/03/19 22:00 Resp 17 06/03/19 22:00 BP 135/64 06/03/19 22:00 Pulse Ox 99 06/03/19 22:00
[2019-06-04] MEDS: DIVALPROEX ER 250 MG TAB PO SCH (09:21)
[2019-06-04] MEDS: carvediloL 12.5 MG TAB PO SCH ×2 (09:21→21:07)
[2019-06-04] MEDS: SPIRONOLACTONE 25 MG TAB PO SCH (09:22)
[2019-06-04] MEDS: PARoxetine 20 MG TAB PO SCH (09:22)
[2019-06-04] MEDS: LISINOPRIL 10 MG TAB PO SCH (09:22)
[2019-06-04] MEDS: risperiDONE 1 MG TAB PO SCH ×2 (09:22→21:06)
[2019-06-04] MEDS: DIVALPROEX ER 500 MG TAB PO SCH (21:06)
[2019-06-04] MEDS: PRAVASTATIN 40 MG TAB PO SCH (21:06)
[2019-06-04] MEDS: traZODone 50 MG TAB PO SCH (21:07)
[2019-06-04] MEDS: DONEPEZIL 10 MG TAB PO SCH (21:07)
[2019-06-05] MEDS: FUROSEMIDE 40 MG TAB PO SCH ×2 (05:28→17:31)
[2019-06-05] MEDS: glipiZIDE 5 MG TAB PO SCH ×2 (08:07→17:31)
[2019-06-05] MEDS: metFORMIN 500 MG TAB PO SCH ×2 (08:07→17:31)
--- NOTE | 2019-06-05 08:12 | Progress Note ---
Subjective Date of service: 06/05/19 Principal diagnosis: Schizoafffective Disorder, Dementia w/Behavioral Disturbance Subjective Comment: Reviewed the patient's medical chart and discussed changes with nursing staff. The nurse note states the patient is alert and oriented x's 2; confused and qu iet. patient ate his breakfast and has been laying on the chair. patient has been using the restroom to void, but incontinent in regards to bowel movements. tech had to clean patient before lunchtime. denies si/hi/avh/pain. flat affect. In my morning interview with the patient he is in bed. Awake. He is pleasant, calm and cooperative. He is A/O x 3. The patient seems withdrawn and makes minimum eye contact. He replies "fine" when asked about his mood and sleep. He denies SI/HI or hallucinations of any kind. He mentioned again this morning about going home. When asking the patient about the behaviors that got him here, he replied "my daughter thought I was sick." Reason for continued hospitalization: Inability to care for himself Constitutional:Negative for weight loss ENT: Negative for stridor Respiratory: Negative for cough or hemoptysis All systems reviewed and are negative Mental Status Exam Appearance: In bed. Awake. Behavior: Pleasant, calm and cooperative. Mood: "fine" Affect: Congruent with stated mood Thought Process: Goal directed Speech: Normal pace and tone Thought Content Harmfulness Denies SI/HI Hallucinations: patient denies Delusions: None elicited Consciousness: Alert Cognition/Memory: Fair Insight/Judgment: Limited. Assessment Schizoaffective Disorder Dementia w/Behavioral Disturbance Treatment Plan Due to the psychiatric conditions and treatment listed in the Assessment and Plan - the patient requires continued hospitalization. Will continue inpatient treatment to allow for medication adjustment and monitoring. Will continue q15 min safety checks. Will encourage the use of environmental modifications and non-pharmacologic approaches for the management of behavioral and psychological symptoms. Changes made to medication regimen today: Will start Depo Provera for sexual inappropriate behaviors (Family reports it was beneficial in the past) Monitor for medication side effects. Check VPA level in am tomorrow The patient will continue on medications for physical illnesses, and Hospitalist will closely monitor these Continue intensive physical and occupational therapies. Monitor patient's mood, sleep, appetite, and behavior closely. Encourage patient to participate in individual and group therapeutic sessions on the [place]. Will provide a safe and therapeutic environment for patient. Estimated Length of stay: 3 days Medications and Allergies Allergies Allergy/AdvReac Type Severity Reaction Status Date / Time quinidine Allergy Unknown Verified 05/20/19 15:24 Home Medications Medication Instructions Recorded Confirmed Last Taken Type Divalproex ER [Depakote ER] 250 mg PO DAILY 05/20/19 06/02/19 Unknown History Divalproex ER [Depakote ER] 500 mg PO QHS 05/20/19 06/02/19 Unknown History Donepezil [Aricept] 10 mg PO QHS 05/20/19 06/02/19 Unknown History Furosemide [Lasix TAB] 40 mg PO BID 05/20/19 06/02/19 Unknown History Simvastatin 20 mg PO QHS 05/20/19 06/02/19 Unknown History Spironolactone [Aldactone] 12.5 mg PO QDAY 05/20/19 06/02/19 Unknown History carvediloL [Coreg] 12.5 mg PO BID 05/20/19 06/02/19 Unknown History glipiZIDE [Glucotrol] 5 mg PO BID 05/20/19 06/02/19 Unknown History lisinopriL [Zestril TAB] 10 mg PO QDAY 05/20/19 06/02/19 Unknown History metFORMIN [Glucophage] 500 mg PO BID 05/20/19 06/02/19 Unknown History PARoxetine [Paxil] 40 mg PO QDAY #60 tablet 05/25/19 06/02/19 Unknown Rx risperiDONE [RisperDAL] 1 mg PO BID #60 tablet 05/25/19 06/02/19 Unknown Rx traZODone [Desyrel] 50 mg PO QHS #30 tablet 05/25/19 06/02/19 Unknown Rx Active Meds: Active Medications Carvedilol (Coreg) 12.5 mg PO BID [facility] Last Admin: 06/04/19 21:07 Dose: 12.5 mg Documented by: Divalproex Sodium (Depakote Er) 250 mg PO DAILY [facility] Last Admin: 06/04/19 09:21 Dose: 250 mg Documented by: Divalproex Sodium (Depakote Er) 500 mg PO QHS [facility] Last Admin: 06/04/19 21:06 Dose: 500 mg Documented by: Donepezil HCl (Aricept) 10 mg PO QHS [facility] Last Admin: 06/04/19 21:07 Dose: 10 mg Documented by: Furosemide (Lasix) 40 mg PO 0600,1800 [facility] Last Admin: 06/05/19 05:28 Dose: 40 mg Documented by: Glipizide (Glucotrol) 5 mg PO BIDDIAB [facility] Last Admin: 06/04/19 16:36 Dose: 5 mg Documented by: Lisinopril (Zestril) 10 mg PO QDAY [facility] Last Admin: 06/04/19 09:22 Dose: 10 mg Documented by: Melatonin (Melatonin) 5 mg PO QHS PRN PRN Reason: Sleep Metformin HCl (Glucophage) 500 mg PO BIDDIAB [facility] Last Admin: 06/04/19 16:36 Dose: 500 mg Documented by: Olanzapine (Zyprexa Zydis) 5 mg PO Q6H PRN PRN Reason: Agitation Paroxetine HCl (Paxil) 40 mg PO QDAY [facility] Last Admin: 06/04/19 09:22 Dose: 40 mg Documented by: Pravastatin Sodium (Pravachol) 40 mg PO QHS [facility] Last Admin: 06/04/19 21:06 Dose: 40 mg Documented by: Risperidone (Risperdal) 1 mg PO BID [facility] Last Admin: 06/04/19 21:06 Dose: 1 mg Documented by: Spironolactone (Aldactone) 12.5 mg PO QDAY [facility] Last Admin: 06/04/19 09:22 Dose: 12.5 mg Documented by: Trazodone HCl (Desyrel) 50 mg PO QHS [facility] Last Admin: 06/04/19 21:07 Dose: 50 mg Documented by: Results - Results Labs/Vitals: Laboratory Last Values WBC 5.6 K/mm3 (4.5-11.0) 06/01/19 16:31 RBC 4.45 M/mm3 (3.65-5.03) 06/01/19 16:31 Hgb 12.1 gm/dl (11.8-15.2) 06/01/19 16:31 Hct 37.7 % (35.5-45.6) 06/01/19 16:31 MCV 85 fl (84-94) 06/01/19 16:31 MCH 27 pg (28-32) L 06/01/19 16:31 MCHC 32 % (32-34) 06/01/19 16:31 RDW 16.1 % (13.2-15.2) H 06/01/19 16:31 Plt Count 331 K/mm3 (140-440) 06/01/19 16:31 Lymph % (Auto) 36.8 % (13.4-35.0) H 06/01/19 16:31 [place] % (Auto) 12.0 % (0.0-7.3) H 06/01/19 16:31 Eos % (Auto) 1.2 % (0.0-4.3) 06/01/19 16:31 Baso % (Auto) 0.8 % (0.0-1.8) 06/01/19 16:31 Lymph # 2.1 K/mm3 (1.2-5.4) 06/01/19 16:31 [place] # 0.7 K/mm3 (0.0-0.8) 06/01/19 16:31 Eos # 0.1 K/mm3 (0.0-0.4) 06/01/19 16:31 Baso # 0.0 K/mm3 (0.0-0.1) 06/01/19 16:31 Seg Neutrophils % 49.2 % (40.0-70.0) 06/01/19 16:31 Seg Neutrophils # 2.8 K/mm3 (1.8-7.7) 06/01/19 16:31 Sodium 141 mmol/L (137-145) 06/01/19 16:31 Potassium 4.4 mmol/L (3.6-5.0) 06/01/19 16:31 Chloride 99.9 mmol/L (98-107) 06/01/19 16:31 Carbon Dioxide 24 mmol/L (22-30) 06/01/19 16:31 Anion Gap 22 mmol/L 06/01/19 16:31 BUN 21 mg/dL (9-20) H 06/01/19 16:31 Creatinine 0.9 mg/dL (0.8-1.5) 06/01/19 16:31 Estimated GFR > 60 ml/min 06/01/19 16:31 BUN/Creatinine Ratio 23 % 06/01/19 16:31 Glucose 141 mg/dL (75-100) H 06/01/19 16:31 POC Glucose 135 (70-105) H 06/05/19 06:33 Hemoglobin A1c 7.8 % (4-6) H 06/01/19 16:31 Calcium 10.0 mg/dL (8.4-10.2) 06/01/19 16:31 Total Bilirubin 0.20 mg/dL (0.1-1.2) 06/01/19 16:31 AST 18 units/L (5-40) 06/01/19 16:31 ALT 9 units/L (7-56) 06/01/19 16:31 Alkaline Phosphatase 60 units/L (35-129) 06/01/19 16:31 Total Protein 8.2 g/dL (6.3-8.2) 06/01/19 16:31 Albumin 4.4 g/dL (3.9-5) 06/01/19 16:31 Albumin/Globulin Ratio 1.2 % 06/01/19 16:31 Triglycerides 78 mg/dL (2-149) 06/01/19 16:31 Cholesterol 141 mg/dL (50-199) 06/01/19 16:31 LDL Cholesterol Direct 82 mg/dL (50-130) 06/01/19 16:31 HDL Cholesterol 48 mg/dL (40-59) 06/01/19 16:31 Cholesterol/HDL Ratio 2.93 % 06/01/19 16:31 TSH 0.907 mlU/mL (0.270-4.200) 06/01/19 16:31 Last Vital Signs Temp 97.4 F L 06/04/19 22:00 Pulse 72 06/04/19 22:00 Resp 20 06/04/19 22:00 BP 145/70 06/04/19 22:00 Pulse Ox 99 06/04/19 22:00
[2019-06-05] MEDS ORDERED: PRAVASTATIN 40 MG TAB PO SCH (08:46)
[2019-06-05] MEDS: SPIRONOLACTONE 25 MG TAB PO SCH (09:06)
[2019-06-05] MEDS: LISINOPRIL 10 MG TAB PO SCH (09:08)
[2019-06-05] MEDS: PARoxetine 20 MG TAB PO SCH (09:08)
[2019-06-05] MEDS: carvediloL 12.5 MG TAB PO SCH ×2 (09:09→21:02)
[2019-06-05] MEDS: risperiDONE 1 MG TAB PO SCH ×2 (09:09→21:02)
[2019-06-05] MEDS: DIVALPROEX ER 250 MG TAB PO SCH (09:09)
[2019-06-05] MEDS ORDERED: PARoxetine 10 MG TAB PO SCH ×2 (10:00)
[2019-06-05] MEDS ORDERED: PARoxetine 20 MG TAB PO SCH (10:00)
[2019-06-05] MEDS: traZODone 50 MG TAB PO SCH (21:01)
[2019-06-05] MEDS: DONEPEZIL 10 MG TAB PO SCH (21:02)
[2019-06-05] MEDS: DIVALPROEX ER 500 MG TAB PO SCH (21:02)
[2019-06-06] MEDS: FUROSEMIDE 40 MG TAB PO SCH ×2 (05:55→18:10)
[2019-06-06] MEDS ORDERED: medroxyPROGESTERone ACETATE 150 MG/ML SYRINGE IM ONE (07:15)
--- NOTE | 2019-06-06 07:25 | Progress Note ---
Subjective Date of service: 06/06/19 Principal diagnosis: Schizoafffective Disorder, Dementia w/Behavioral Disturbance Subjective Comment: Reviewed the patient's medical chart and discussed changes with nursing staff. The nurse note states the patient is resting quietly in bed. He is easily arou sable. Patient is pleasant and cooperative with slow speech. He presents as mildly confused. In my morning interview with the patient he is out of bed in the bathroom. He has wet the bed. He is pleasant, calm and cooperative. He makes good eye contact. When he comes out he seems slightly confused. The patient thinks he's at the "[facility]." He says he's doing "fine." Mr. Encarnacion believes he's here because his " said he wasn't well because he had a cough." He denies SI/HI or hallucinations of any kind. Reason for continued hospitalization: Inability to care for himself Constitutional:Negative for weight loss ENT: Negative for stridor Respiratory: Negative for cough or hemoptysis All systems reviewed and are negative Mental Status Exam Appearance: In bathroom urinating. Behavior: Pleasant, calm and cooperative. Mood: "fine" Affect: Congruent with stated mood Thought Process: Confused Speech: Normal pace and tone Thought Content Harmfulness Denies SI/HI Hallucinations: patient denies Delusions: None elicited Consciousness: Alert Cognition/Memory: Fair Insight/Judgment: Limited. Assessment Schizoaffective Disorder Dementia w/Behavioral Disturbance Treatment Plan Due to the psychiatric conditions and treatment listed in the Assessment and [place] - the patient requires continued hospitalization. Will continue inpatient treatment to allow for medication adjustment and monitoring. Will continue q15 min safety checks. Will encourage the use of environmental modifications and non-pharmacologic approaches for the management of behavioral and psychological symptoms. Changes made to medication regimen today: Changes made yesterday. No changes today. Monitor for medication side effects. The patient will continue on medications for physical illnesses, and Hospitalist will closely monitor these Continue intensive physical and occupational therapies. Monitor patient's mood, sleep, appetite, and behavior closely. Encourage patient to participate in individual and group therapeutic sessions on the [place]. Will provide a safe and therapeutic environment for patient. Estimated Length of stay: 2 days Medications and Allergies Allergies Allergy/AdvReac Type Severity Reaction Status Date / Time quinidine Allergy Unknown Verified 05/20/19 15:24 Home Medications Medication Instructions Recorded Confirmed Last Taken Type Divalproex ER [Depakote ER] 250 mg PO DAILY 05/20/19 06/02/19 Unknown History Divalproex ER [Depakote ER] 500 mg PO QHS 05/20/19 06/02/19 Unknown History Donepezil [Aricept] 10 mg PO QHS 05/20/19 06/02/19 Unknown History Furosemide [Lasix TAB] 40 mg PO BID 05/20/19 06/02/19 Unknown History Simvastatin 20 mg PO QHS 05/20/19 06/02/19 Unknown History Spironolactone [Aldactone] 12.5 mg PO QDAY 05/20/19 06/02/19 Unknown History carvediloL [Coreg] 12.5 mg PO BID 05/20/19 06/02/19 Unknown History glipiZIDE [Glucotrol] 5 mg PO BID 05/20/19 06/02/19 Unknown History lisinopriL [Zestril TAB] 10 mg PO QDAY 05/20/19 06/02/19 Unknown History metFORMIN [Glucophage] 500 mg PO BID 05/20/19 06/02/19 Unknown History PARoxetine [Paxil] 40 mg PO QDAY #60 tablet 05/25/19 06/02/19 Unknown Rx risperiDONE [RisperDAL] 1 mg PO BID #60 tablet 05/25/19 06/02/19 Unknown Rx traZODone [Desyrel] 50 mg PO QHS #30 tablet 05/25/19 06/02/19 Unknown Rx Active Meds: Active Medications Carvedilol (Coreg) 12.5 mg PO BID [facility] Last Admin: 06/05/19 21:02 Dose: 12.5 mg Documented by: Divalproex Sodium (Depakote Er) 250 mg PO DAILY [facility] Last Admin: 06/05/19 09:09 Dose: 250 mg Documented by: Divalproex Sodium (Depakote Er) 500 mg PO QHS [facility] Last Admin: 06/05/19 21:02 Dose: 500 mg Documented by: Donepezil HCl (Aricept) 10 mg PO QHS [facility] Last Admin: 06/05/19 21:02 Dose: 10 mg Documented by: Furosemide (Lasix) 40 mg PO 0600,1800 [facility] Last Admin: 06/06/19 05:55 Dose: 40 mg Documented by: Glipizide (Glucotrol) 5 mg PO BIDDIAB [facility] Last Admin: 06/05/19 17:31 Dose: 5 mg Documented by: Lisinopril (Zestril) 10 mg PO QDAY [facility] Last Admin: 06/05/19 09:08 Dose: 10 mg Documented by: Melatonin (Melatonin) 5 mg PO QHS PRN PRN Reason: Sleep Metformin HCl (Glucophage) 500 mg PO BIDDIAB [facility] Last Admin: 06/05/19 17:31 Dose: 500 mg Documented by: Olanzapine (Zyprexa Zydis) 5 mg PO Q6H PRN PRN Reason: Agitation Pravastatin Sodium (Pravachol) 50 mg PO QHS [facility] Risperidone (Risperdal) 1 mg PO BID [facility] Last Admin: 06/05/19 21:02 Dose: 1 mg Documented by: Spironolactone (Aldactone) 12.5 mg PO QDAY [facility] Last Admin: 06/05/19 09:06 Dose: 12.5 mg Documented by: Trazodone HCl (Desyrel) 50 mg PO QHS [facility] Last Admin: 06/05/19 21:01 Dose: 50 mg Documented by: Results - Results Labs/Vitals: Laboratory Last Values WBC 5.6 K/mm3 (4.5-11.0) 06/01/19 16:31 RBC 4.45 M/mm3 (3.65-5.03) 06/01/19 16:31 Hgb 12.1 gm/dl (11.8-15.2) 06/01/19 16:31 Hct 37.7 % (35.5-45.6) 06/01/19 16:31 MCV 85 fl (84-94) 06/01/19 16:31 MCH 27 pg (28-32) L 06/01/19 16:31 MCHC 32 % (32-34) 06/01/19 16:31 RDW 16.1 % (13.2-15.2) H 06/01/19 16:31 Plt Count 331 K/mm3 (140-440) 06/01/19 16:31 Lymph % (Auto) 36.8 % (13.4-35.0) H 06/01/19 16:31 [place] % (Auto) 12.0 % (0.0-7.3) H 06/01/19 16:31 Eos % (Auto) 1.2 % (0.0-4.3) 06/01/19 16:31 Baso % (Auto) 0.8 % (0.0-1.8) 06/01/19 16:31 Lymph # 2.1 K/mm3 (1.2-5.4) 06/01/19 16:31 [place] # 0.7 K/mm3 (0.0-0.8) 06/01/19 16:31 Eos # 0.1 K/mm3 (0.0-0.4) 06/01/19 16:31 Baso # 0.0 K/mm3 (0.0-0.1) 06/01/19 16:31 Seg Neutrophils % 49.2 % (40.0-70.0) 06/01/19 16:31 Seg Neutrophils # 2.8 K/mm3 (1.8-7.7) 06/01/19 16:31 Sodium 141 mmol/L (137-145) 06/01/19 16:31 Potassium 4.4 mmol/L (3.6-5.0) 06/01/19 16:31 Chloride 99.9 mmol/L (98-107) 06/01/19 16:31 Carbon Dioxide 24 mmol/L (22-30) 06/01/19 16:31 Anion Gap 22 mmol/L 06/01/19 16:31 BUN 21 mg/dL (9-20) H 06/01/19 16:31 Creatinine 0.9 mg/dL (0.8-1.5) 06/01/19 16:31 Estimated GFR > 60 ml/min 06/01/19 16:31 BUN/Creatinine Ratio 23 % 06/01/19 16:31 Glucose 141 mg/dL (75-100) H 06/01/19 16:31 POC Glucose 133 (70-105) H 06/05/19 20:02 Hemoglobin A1c 7.8 % (4-6) H 06/01/19 16:31 Calcium 10.0 mg/dL (8.4-10.2) 06/01/19 16:31 Total Bilirubin 0.20 mg/dL (0.1-1.2) 06/01/19 16:31 AST 18 units/L (5-40) 06/01/19 16:31 ALT 9 units/L (7-56) 06/01/19 16:31 Alkaline Phosphatase 60 units/L (35-129) 06/01/19 16:31 Total Protein 8.2 g/dL (6.3-8.2) 06/01/19 16:31 Albumin 4.4 g/dL (3.9-5) 06/01/19 16:31 Albumin/Globulin Ratio 1.2 % 06/01/19 16:31 Triglycerides 78 mg/dL (2-149) 06/01/19 16:31 Cholesterol 141 mg/dL (50-199) 06/01/19 16:31 LDL Cholesterol Direct 82 mg/dL (50-130) 06/01/19 16:31 HDL Cholesterol 48 mg/dL (40-59) 06/01/19 16:31 Cholesterol/HDL Ratio 2.93 % 06/01/19 16:31 TSH 0.907 mlU/mL (0.270-4.200) 06/01/19 16:31 Last Vital Signs Temp 98.3 F 06/05/19 19:06 Pulse 87 06/05/19 19:06 Resp 18 06/05/19 19:06 BP 127/73 06/05/19 19:06 Pulse Ox 97 06/05/19 19:06
[2019-06-06] MEDS: risperiDONE 1 MG TAB PO SCH ×2 (09:43→21:56)
[2019-06-06] MEDS: carvediloL 12.5 MG TAB PO SCH ×2 (09:43→21:55)
[2019-06-06] MEDS: LISINOPRIL 10 MG TAB PO SCH (09:43)
[2019-06-06] MEDS: glipiZIDE 5 MG TAB PO SCH ×2 (09:44→18:10)
[2019-06-06] MEDS: metFORMIN 500 MG TAB PO SCH ×2 (09:44→18:10)
[2019-06-06] MEDS: DIVALPROEX ER 250 MG TAB PO SCH (09:45)
[2019-06-06] MEDS: SPIRONOLACTONE 25 MG TAB PO SCH (09:45)
[2019-06-06] MEDS: PARoxetine 20 MG TAB PO SCH (09:46)
[2019-06-06] MEDS: traZODone 100 MG TAB PO SCH (21:53)
[2019-06-06] MEDS: PRAVASTATIN 40 MG TAB PO SCH (21:54)
[2019-06-06] MEDS: DONEPEZIL 10 MG TAB PO SCH (21:55)
[2019-06-06] MEDS: DIVALPROEX ER 500 MG TAB PO SCH (21:55)
[2019-06-07] MEDS: FUROSEMIDE 40 MG TAB PO SCH ×2 (06:48→17:00)
--- NOTE | 2019-06-07 08:15 | Progress Note ---
Subjective Date of service: 06/07/19 Principal diagnosis: Schizoafffective Disorder, Dementia w/Behavioral Disturbance Subjective Comment: Reviewed the patient's medical chart and discussed changes with nursing staff. The nurse note states the patient was quiet throughout the evening. He sat and lay on the bench in the activity room. Patient was medication compliant. He presents as sad and depressed but is pleasant and cooperative with interaction. In my morning interview with the patient he is lying in bed. Awake. He is pleasant, calm and cooperative. He makes good fair eye contact. He is a/o x 2. He says he slept "fine." He denies SI/HI or hallucinations of any kind. He says his appetite is "good." Reason for continued hospitalization: Inability to care for himself Constitutional:Negative for weight loss ENT: Negative for stridor Respiratory: Negative for cough or hemoptysis All systems reviewed and are negative Mental Status Exam Appearance: In bathroom urinating. Behavior: Pleasant, calm and cooperative. Mood: "fine" Affect: Congruent with stated mood Thought Process: Confused Speech: Normal pace and tone Thought Content Harmfulness Denies SI/HI Hallucinations: patient denies Delusions: None elicited Consciousness: Alert Cognition/Memory: Fair Insight/Judgment: Limited. Assessment Schizoaffective Disorder Dementia w/Behavioral Disturbance Treatment Plan Due to the psychiatric conditions and treatment listed in the Assessment and Plan - the patient requires continued hospitalization. Will continue inpatient treatment to allow for medication adjustment and monitoring. Will continue q15 min safety checks. Will encourage the use of environmental modifications and non-pharmacologic approaches for the management of behavioral and psychological symptoms. Changes made to medication regimen today: No changes to meds today. Valproate level ordered Monitor for medication side effects. The patient will continue on medications for physical illnesses, and Hospitalist will closely monitor these Continue intensive physical and occupational therapies. Monitor patient's mood, sleep, appetite, and behavior closely. Encourage patient to participate in individual and group therapeutic sessions on the [place]. Will provide a safe and therapeutic environment for patient. Estimated Length of stay: 2 days Medications and Allergies Allergies Allergy/AdvReac Type Severity Reaction Status Date / Time quinidine Allergy Unknown Verified 05/20/19 15:24 Home Medications Medication Instructions Recorded Confirmed Last Taken Type Divalproex ER [Depakote ER] 250 mg PO DAILY 05/20/19 06/02/19 Unknown History Divalproex ER [Depakote ER] 500 mg PO QHS 05/20/19 06/02/19 Unknown History Donepezil [Aricept] 10 mg PO QHS 05/20/19 06/02/19 Unknown History Furosemide [Lasix TAB] 40 mg PO BID 05/20/19 06/02/19 Unknown History Simvastatin 20 mg PO QHS 05/20/19 06/02/19 Unknown History Spironolactone [Aldactone] 12.5 mg PO QDAY 05/20/19 06/02/19 Unknown History carvediloL [Coreg] 12.5 mg PO BID 05/20/19 06/02/19 Unknown History glipiZIDE [Glucotrol] 5 mg PO BID 05/20/19 06/02/19 Unknown History lisinopriL [Zestril TAB] 10 mg PO QDAY 05/20/19 06/02/19 Unknown History metFORMIN [Glucophage] 500 mg PO BID 05/20/19 06/02/19 Unknown History PARoxetine [Paxil] 40 mg PO QDAY #60 tablet 05/25/19 06/02/19 Unknown Rx risperiDONE [RisperDAL] 1 mg PO BID #60 tablet 05/25/19 06/02/19 Unknown Rx traZODone [Desyrel] 50 mg PO QHS #30 tablet 05/25/19 06/02/19 Unknown Rx Active Meds: Active Medications Carvedilol (Coreg) 12.5 mg PO BID [facility] Last Admin: 06/06/19 21:55 Dose: 12.5 mg Documented by: Divalproex Sodium (Depakote Er) 250 mg PO DAILY [facility] Last Admin: 06/06/19 09:45 Dose: 250 mg Documented by: Divalproex Sodium (Depakote Er) 500 mg PO QHS [facility] Last Admin: 06/06/19 21:55 Dose: 500 mg Documented by: Donepezil HCl (Aricept) 10 mg PO QHS [facility] Last Admin: 06/06/19 21:55 Dose: 10 mg Documented by: Furosemide (Lasix) 40 mg PO 0600,1800 [facility] Last Admin: 06/07/19 06:48 Dose: 40 mg Documented by: Glipizide (Glucotrol) 5 mg PO BIDDIAB [facility] Last Admin: 06/06/19 18:10 Dose: 5 mg Documented by: Lisinopril (Zestril) 10 mg PO QDAY [facility] Last Admin: 06/06/19 09:43 Dose: 10 mg Documented by: Melatonin (Melatonin) 5 mg PO QHS PRN PRN Reason: Sleep Metformin HCl (Glucophage) 500 mg PO BIDDIAB [facility] Last Admin: 06/06/19 18:10 Dose: 500 mg Documented by: Olanzapine (Zyprexa Zydis) 5 mg PO Q6H PRN PRN Reason: Agitation Paroxetine HCl (Paxil) 50 mg PO QDAY [facility] Last Admin: 06/06/19 09:46 Dose: 50 mg Documented by: Pravastatin Sodium (Pravachol) 40 mg PO QHS [facility] Last Admin: 06/06/19 21:54 Dose: 40 mg Documented by: Risperidone (Risperdal) 1 mg PO BID [facility] Last Admin: 06/06/19 21:56 Dose: 1 mg Documented by: Spironolactone (Aldactone) 12.5 mg PO QDAY [facility] Last Admin: 06/06/19 09:45 Dose: 12.5 mg Documented by: Trazodone HCl (Desyrel) 50 mg PO QHS [facility] Last Admin: 06/06/19 21:53 Dose: 50 mg Documented by: Results - Results Labs/Vitals: Laboratory Last Values WBC 5.6 K/mm3 (4.5-11.0) 06/01/19 16:31 RBC 4.45 M/mm3 (3.65-5.03) 06/01/19 16:31 Hgb 12.1 gm/dl (11.8-15.2) 06/01/19 16:31 Hct 37.7 % (35.5-45.6) 06/01/19 16:31 MCV 85 fl (84-94) 06/01/19 16:31 MCH 27 pg (28-32) L 06/01/19 16:31 MCHC 32 % (32-34) 06/01/19 16:31 RDW 16.1 % (13.2-15.2) H 06/01/19 16:31 Plt Count 331 K/mm3 (140-440) 06/01/19 16:31 Lymph % (Auto) 36.8 % (13.4-35.0) H 06/01/19 16:31 [place] % (Auto) 12.0 % (0.0-7.3) H 06/01/19 16:31 Eos % (Auto) 1.2 % (0.0-4.3) 06/01/19 16:31 Baso % (Auto) 0.8 % (0.0-1.8) 06/01/19 16:31 Lymph # 2.1 K/mm3 (1.2-5.4) 06/01/19 16:31 [place] # 0.7 K/mm3 (0.0-0.8) 06/01/19 16:31 Eos # 0.1 K/mm3 (0.0-0.4) 06/01/19 16:31 Baso # 0.0 K/mm3 (0.0-0.1) 06/01/19 16:31 Seg Neutrophils % 49.2 % (40.0-70.0) 06/01/19 16:31 Seg Neutrophils # 2.8 K/mm3 (1.8-7.7) 06/01/19 16:31 Sodium 141 mmol/L (137-145) 06/01/19 16:31 Potassium 4.4 mmol/L (3.6-5.0) 06/01/19 16:31 Chloride 99.9 mmol/L (98-107) 06/01/19 16:31 Carbon Dioxide 24 mmol/L (22-30) 06/01/19 16:31 Anion Gap 22 mmol/L 06/01/19 16:31 BUN 21 mg/dL (9-20) H 06/01/19 16:31 Creatinine 0.9 mg/dL (0.8-1.5) 06/01/19 16:31 Estimated GFR > 60 ml/min 06/01/19 16:31 BUN/Creatinine Ratio 23 % 06/01/19 16:31 Glucose 141 mg/dL (75-100) H 06/01/19 16:31 POC Glucose 211 (70-105) H 06/07/19 08:17 Hemoglobin A1c 7.8 % (4-6) H 06/01/19 16:31 Calcium 10.0 mg/dL (8.4-10.2) 06/01/19 16:31 Total Bilirubin 0.20 mg/dL (0.1-1.2) 06/01/19 16:31 AST 18 units/L (5-40) 06/01/19 16:31 ALT 9 units/L (7-56) 06/01/19 16:31 Alkaline Phosphatase 60 units/L (35-129) 06/01/19 16:31 Total Protein 8.2 g/dL (6.3-8.2) 06/01/19 16:31 Albumin 4.4 g/dL (3.9-5) 06/01/19 16:31 Albumin/Globulin Ratio 1.2 % 06/01/19 16:31 Triglycerides 78 mg/dL (2-149) 06/01/19 16:31 Cholesterol 141 mg/dL (50-199) 06/01/19 16:31 LDL Cholesterol Direct 82 mg/dL (50-130) 06/01/19 16:31 HDL Cholesterol 48 mg/dL (40-59) 06/01/19 16:31 Cholesterol/HDL Ratio 2.93 % 06/01/19 16:31 TSH 0.907 mlU/mL (0.270-4.200) 06/01/19 16:31 Last Vital Signs Temp 98.3 F 06/06/19 22:00 Pulse 88 06/06/19 21:55 Resp 18 06/06/19 22:00 BP 105/55 06/06/19 21:55 Pulse Ox 100 06/06/19 19:06
[2019-06-07] MEDS: glipiZIDE 5 MG TAB PO SCH ×2 (08:23→16:43)
[2019-06-07] MEDS: metFORMIN 500 MG TAB PO SCH ×2 (08:23→16:43)
[2019-06-07] MEDS: LISINOPRIL 10 MG TAB PO SCH (09:08)
[2019-06-07] MEDS: risperiDONE 1 MG TAB PO SCH ×2 (09:09→22:22)
[2019-06-07] MEDS: SPIRONOLACTONE 25 MG TAB PO SCH (09:09)
[2019-06-07] MEDS: carvediloL 12.5 MG TAB PO SCH ×2 (09:09→22:23)
[2019-06-07] MEDS: DIVALPROEX ER 250 MG TAB PO SCH (09:09)
[2019-06-07] MEDS: PARoxetine 20 MG TAB PO SCH (09:10)
--- NOTE | 2019-06-07 18:06 | XRay Report ---
CHEST 2 VIEWS INDICATION / CLINICAL INFORMATION: TB Screening prior to Prison placement. COMPARISON: None available. FINDINGS: SUPPORT DEVICES: None. 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 LUNGS / PLEURA: No significant pulmonary or pleural abnormality. .No pneumothorax. ADDITIONAL FINDINGS: No significant additional findings. IMPRESSION: 1. No acute findings. Signer Name: Endy Fuentes MD Signed: 06/07/2019 6:02 PM Workstation Name: [id number]
[2019-06-07 20:17] LABS: Bilirubin,Urine NEG (Negative); Blood,Urine NEG (Negative); Color,Urine Yellow (Yellow); Protein,Urine <15 mg/dL mg/dL (Negative); Urobilinogen,Urine < 2.0 mg/dL (<2.0)
[2019-06-07] MEDS: PRAVASTATIN 40 MG TAB PO SCH (22:01)
[2019-06-07] MEDS: DONEPEZIL 10 MG TAB PO SCH (22:22)
[2019-06-07] MEDS: DIVALPROEX ER 500 MG TAB PO SCH (22:23)
[2019-06-08] MEDS: traZODone 100 MG TAB PO SCH (05:01)
--- NOTE | 2019-06-08 07:47 | Progress Note ---
Subjective Date of service: 06/08/19 Principal diagnosis: Schizoafffective Disorder, Dementia w/Behavioral Disturbance Subjective Comment: Reviewed the patient's medical chart and discussed changes with nursing staff. T In my morning interview with the patient he is lying in bed. Awake. He is pleasant, calm and cooperative. He makes good fair eye contact. He is a/o x 2. He says he slept "fine." He denies SI/HI or hallucinations of any kind. He says his appetite is "good." Reason for continued hospitalization: Inability to care for himself Constitutional:Negative for weight loss ENT: Negative for stridor Respiratory: Negative for cough or hemoptysis All systems reviewed and are negative Mental Status Exam Appearance: In bathroom urinating. Behavior: Pleasant, calm and cooperative. Mood: "fine" Affect: Congruent with stated mood Thought Process: Confused Speech: Normal pace and tone Thought Content Harmfulness Denies SI/HI Hallucinations: patient denies Delusions: None elicited Consciousness: Alert Cognition/Memory: Fair Insight/Judgment: Limited. Assessment Schizoaffective Disorder Dementia w/Behavioral Disturbance Treatment Plan Due to the psychiatric conditions and treatment listed in the Assessment and Plan - the patient requires continued hospitalization. Will continue inpatient treatment to allow for medication adjustment and monitoring. Will continue q15 min safety checks. Will encourage the use of environmental modifications and non-pharmacologic approaches for the management of behavioral and psychological symptoms. Changes made to medication regimen today: No changes to meds today. Valproate level ordered Monitor for medication side effects. The patient will continue on medications for physical illnesses, and Hospitalist will closely monitor these Continue intensive physical and occupational therapies. Monitor patient's mood, sleep, appetite, and behavior closely. Encourage patient to participate in individual and group therapeutic sessions on the [place]. Will provide a safe and therapeutic environment for patient. Estimated Length of stay: 2 days Medications and Allergies Allergies Allergy/AdvReac Type Severity Reaction Status Date / Time quinidine Allergy Unknown Verified 05/20/19 15:24 Home Medications Medication Instructions Recorded Confirmed Last Taken Type Divalproex ER [Depakote ER] 250 mg PO DAILY 05/20/19 06/02/19 Unknown History Divalproex ER [Depakote ER] 500 mg PO QHS 05/20/19 06/02/19 Unknown History Donepezil [Aricept] 10 mg PO QHS 05/20/19 06/02/19 Unknown History Furosemide [Lasix TAB] 40 mg PO BID 05/20/19 06/02/19 Unknown History Simvastatin 20 mg PO QHS 05/20/19 06/02/19 Unknown History Spironolactone [Aldactone] 12.5 mg PO QDAY 05/20/19 06/02/19 Unknown History carvediloL [Coreg] 12.5 mg PO BID 05/20/19 06/02/19 Unknown History glipiZIDE [Glucotrol] 5 mg PO BID 05/20/19 06/02/19 Unknown History lisinopriL [Zestril TAB] 10 mg PO QDAY 05/20/19 06/02/19 Unknown History metFORMIN [Glucophage] 500 mg PO BID 05/20/19 06/02/19 Unknown History PARoxetine [Paxil] 40 mg PO QDAY #60 tablet 05/25/19 06/02/19 Unknown Rx risperiDONE [RisperDAL] 1 mg PO BID #60 tablet 05/25/19 06/02/19 Unknown Rx traZODone [Desyrel] 50 mg PO QHS #30 tablet 05/25/19 06/02/19 Unknown Rx Active Meds: Active Medications Carvedilol (Coreg) 12.5 mg PO BID [facility] Last Admin: 06/07/19 22:23 Dose: 12.5 mg Documented by: Divalproex Sodium (Depakote Er) 250 mg PO DAILY [facility] Last Admin: 06/07/19 09:09 Dose: 250 mg Documented by: Divalproex Sodium (Depakote Er) 500 mg PO QHS [facility] Last Admin: 06/07/19 22:23 Dose: 500 mg Documented by: Donepezil HCl (Aricept) 10 mg PO QHS [facility] Last Admin: 06/07/19 22:22 Dose: 10 mg Documented by: Furosemide (Lasix) 40 mg PO 0600,1800 [facility] Last Admin: 06/07/19 17:00 Dose: 40 mg Documented by: Glipizide (Glucotrol) 5 mg PO BIDDIAB [facility] Last Admin: 06/07/19 16:43 Dose: 5 mg Documented by: Lisinopril (Zestril) 10 mg PO QDAY [facility] Last Admin: 06/07/19 09:08 Dose: Not Given Documented by: Melatonin (Melatonin) 5 mg PO QHS PRN PRN Reason: Sleep Metformin HCl (Glucophage) 500 mg PO BIDDIAB [facility] Last Admin: 06/07/19 16:43 Dose: 500 mg Documented by: Olanzapine (Zyprexa Zydis) 5 mg PO Q6H PRN PRN Reason: Agitation Last Admin: 06/07/19 18:10 Dose: 5 mg Documented by: Paroxetine HCl (Paxil) 50 mg PO QDAY [facility] Last Admin: 06/07/19 09:10 Dose: 50 mg Documented by: Pravastatin Sodium (Pravachol) 40 mg PO QHS [facility] Last Admin: 06/07/19 22:01 Dose: 40 mg Documented by: Risperidone (Risperdal) 1 mg PO BID [facility] Last Admin: 06/07/19 22:22 Dose: 1 mg Documented by: Spironolactone (Aldactone) 12.5 mg PO QDAY [facility] Last Admin: 06/07/19 09:09 Dose: 12.5 mg Documented by: Trazodone HCl (Desyrel) 50 mg PO QHS [facility] Last Admin: 06/08/19 05:01 Dose: Not Given Documented by: Results - Results Labs/Vitals: Laboratory Last Values WBC 5.6 K/mm3 (4.5-11.0) 06/01/19 16:31 RBC 4.45 M/mm3 (3.65-5.03) 06/01/19 16:31 Hgb 12.1 gm/dl (11.8-15.2) 06/01/19 16:31 Hct 37.7 % (35.5-45.6) 06/01/19 16:31 MCV 85 fl (84-94) 06/01/19 16:31 MCH 27 pg (28-32) L 06/01/19 16:31 MCHC 32 % (32-34) 06/01/19 16:31 RDW 16.1 % (13.2-15.2) H 06/01/19 16:31 Plt Count 331 K/mm3 (140-440) 06/01/19 16:31 Lymph % (Auto) 36.8 % (13.4-35.0) H 06/01/19 16:31 [place] % (Auto) 12.0 % (0.0-7.3) H 06/01/19 16:31 Eos % (Auto) 1.2 % (0.0-4.3) 06/01/19 16:31 Baso % (Auto) 0.8 % (0.0-1.8) 06/01/19 16:31 Lymph # 2.1 K/mm3 (1.2-5.4) 06/01/19 16:31 [place] # 0.7 K/mm3 (0.0-0.8) 06/01/19 16:31 Eos # 0.1 K/mm3 (0.0-0.4) 06/01/19 16:31 Baso # 0.0 K/mm3 (0.0-0.1) 06/01/19 16:31 Seg Neutrophils % 49.2 % (40.0-70.0) 06/01/19 16:31 Seg Neutrophils # 2.8 K/mm3 (1.8-7.7) 06/01/19 16:31 Sodium 141 mmol/L (137-145) 06/01/19 16:31 Potassium 4.4 mmol/L (3.6-5.0) 06/01/19 16:31 Chloride 99.9 mmol/L (98-107) 06/01/19 16:31 Carbon Dioxide 24 mmol/L (22-30) 06/01/19 16:31 Anion Gap 22 mmol/L 06/01/19 16:31 BUN 21 mg/dL (9-20) H 06/01/19 16:31 Creatinine 0.9 mg/dL (0.8-1.5) 06/01/19 16:31 Estimated GFR > 60 ml/min 06/01/19 16:31 BUN/Creatinine Ratio 23 % 06/01/19 16:31 Glucose 141 mg/dL (75-100) H 06/01/19 16:31 POC Glucose 162 (70-105) H 06/07/19 19:48 Hemoglobin A1c 7.8 % (4-6) H 06/01/19 16:31 Calcium 10.0 mg/dL (8.4-10.2) 06/01/19 16:31 Total Bilirubin 0.20 mg/dL (0.1-1.2) 06/01/19 16:31 AST 18 units/L (5-40) 06/01/19 16:31 ALT 9 units/L (7-56) 06/01/19 16:31 Alkaline Phosphatase 60 units/L (35-129) 06/01/19 16:31 Total Protein 8.2 g/dL (6.3-8.2) 06/01/19 16:31 Albumin 4.4 g/dL (3.9-5) 06/01/19 16:31 Albumin/Globulin Ratio 1.2 % 06/01/19 16:31 Triglycerides 78 mg/dL (2-149) 06/01/19 16:31 Cholesterol 141 mg/dL (50-199) 06/01/19 16:31 LDL Cholesterol Direct 82 mg/dL (50-130) 06/01/19 16:31 HDL Cholesterol 48 mg/dL (40-59) 06/01/19 16:31 Cholesterol/HDL Ratio 2.93 % 06/01/19 16:31 TSH 0.907 mlU/mL (0.270-4.200) 06/01/19 16:31 Urine Color Yellow (Yellow) 06/07/19 18:00 Urine Turbidity Clear (Clear) 06/07/19 18:00 Urine pH 5.0 (5.0-7.0) 06/07/19 18:00 Ur Specific [place] 1.018 (1.003-1.030) 06/07/19 18:00 Urine Protein <15 mg/dl mg/dL (Negative) 06/07/19 18:00 Urine Glucose (UA) 150 mg/dL (Negative) 06/07/19 18:00 Urine Ketones Tr mg/dL (Negative) 06/07/19 18:00 Urine Blood Neg (Negative) 06/07/19 18:00 Urine Nitrite Neg (Negative) 06/07/19 18:00 Urine Bilirubin Neg (Negative) 06/07/19 18:00 Urine Urobilinogen < 2.0 mg/dL (<2.0) 06/07/19 18:00 Ur Leukocyte Esterase Neg (Negative) 06/07/19 18:00 Urine WBC (Auto) 1.0 /HPF (0.0-6.0) 06/07/19 18:00 Urine RBC (Auto) 1.0 /HPF (0.0-6.0) 06/07/19 18:00 Valproic Acid 66.1 ug/mL (50-100) 06/07/19 19:35 Last Vital Signs Temp 98.6 F 06/07/19 08:47 Pulse 89 06/07/19 22:23 Resp 16 06/07/19 08:47 BP 134/57 06/07/19 22:23 Pulse Ox 98 06/07/19 08:47
[2019-06-08] MEDS: metFORMIN 500 MG TAB PO SCH ×2 (08:17→16:42)
[2019-06-08] MEDS: glipiZIDE 5 MG TAB PO SCH ×2 (08:17→16:42)
[2019-06-08] MEDS: carvediloL 12.5 MG TAB PO SCH (09:46)
[2019-06-08] MEDS: risperiDONE 1 MG TAB PO SCH (09:47)
[2019-06-08] MEDS: PARoxetine 20 MG TAB PO SCH (09:47)
[2019-06-08] MEDS: LISINOPRIL 10 MG TAB PO SCH (09:47)
[2019-06-08] MEDS: DIVALPROEX ER 250 MG TAB PO SCH (09:48)
[2019-06-08] MEDS: SPIRONOLACTONE 25 MG TAB PO SCH (09:48)
--- NOTE | 2019-06-08 10:17 | Discharge Summary ---
Providers - Providers Date of Admission: 06/01/19 12:11 Date of discharge: 06/08/19 Attending physician: RYAN PRASAD MD 06/01/19 11:38 Consult to Physician [CONS] Routine Comment: Consulting Provider: SON VAN Physician Instructions: Reason For Exam: Medical Management of geripsych patient Primary care physician: COLLAR TACKER Hospitalization Condition: Stable Disposition: DC/[place]-03 [facility] Time spent for discharge: 37mins Allergies/Adverse Reactions: Allergies quinidine Allergy (Verified 05/20/19 15:24) Unknown Vital Signs: Last Vital Signs Temp 99.0 F 06/07/19 19:03 Pulse 95 H 06/08/19 09:48 Resp 18 06/07/19 19:03 BP 141/85 06/08/19 09:48 Pulse Ox 100 06/08/19 09:44 Last Lab: Laboratory Last Values WBC 5.6 K/mm3 (4.5-11.0) 06/01/19 16:31 RBC 4.45 M/mm3 (3.65-5.03) 06/01/19 16:31 Hgb 12.1 gm/dl (11.8-15.2) 06/01/19 16:31 Hct 37.7 % (35.5-45.6) 06/01/19 16:31 MCV 85 fl (84-94) 06/01/19 16:31 MCH 27 pg (28-32) L 06/01/19 16:31 MCHC 32 % (32-34) 06/01/19 16:31 RDW 16.1 % (13.2-15.2) H 06/01/19 16:31 Plt Count 331 K/mm3 (140-440) 06/01/19 16:31 Lymph % (Auto) 36.8 % (13.4-35.0) H 06/01/19 16:31 [place] % (Auto) 12.0 % (0.0-7.3) H 06/01/19 16:31 Eos % (Auto) 1.2 % (0.0-4.3) 06/01/19 16:31 Baso % (Auto) 0.8 % (0.0-1.8) 06/01/19 16:31 Lymph # 2.1 K/mm3 (1.2-5.4) 06/01/19 16:31 [place] # 0.7 K/mm3 (0.0-0.8) 06/01/19 16:31 Eos # 0.1 K/mm3 (0.0-0.4) 06/01/19 16:31 Baso # 0.0 K/mm3 (0.0-0.1) 06/01/19 16:31 Seg Neutrophils % 49.2 % (40.0-70.0) 06/01/19 16:31 Seg Neutrophils # 2.8 K/mm3 (1.8-7.7) 06/01/19 16:31 Sodium 141 mmol/L (137-145) 06/01/19 16:31 Potassium 4.4 mmol/L (3.6-5.0) 06/01/19 16:31 Chloride 99.9 mmol/L (98-107) 06/01/19 16:31 Carbon Dioxide 24 mmol/L (22-30) 06/01/19 16:31 Anion Gap 22 mmol/L 06/01/19 16:31 BUN 21 mg/dL (9-20) H 06/01/19 16:31 Creatinine 0.9 mg/dL (0.8-1.5) 06/01/19 16:31 Estimated GFR > 60 ml/min 06/01/19 16:31 BUN/Creatinine Ratio 23 % 06/01/19 16:31 Glucose 141 mg/dL (75-100) H 06/01/19 16:31 POC Glucose 184 (70-105) H 06/08/19 07:54 Hemoglobin A1c 7.8 % (4-6) H 06/01/19 16:31 Calcium 10.0 mg/dL (8.4-10.2) 06/01/19 16:31 Total Bilirubin 0.20 mg/dL (0.1-1.2) 06/01/19 16:31 AST 18 units/L (5-40) 06/01/19 16:31 ALT 9 units/L (7-56) 06/01/19 16:31 Alkaline Phosphatase 60 units/L (35-129) 06/01/19 16:31 Total Protein 8.2 g/dL (6.3-8.2) 06/01/19 16:31 Albumin 4.4 g/dL (3.9-5) 06/01/19 16:31 Albumin/Globulin Ratio 1.2 % 06/01/19 16:31 Triglycerides 78 mg/dL (2-149) 06/01/19 16:31 Cholesterol 141 mg/dL (50-199) 06/01/19 16:31 LDL Cholesterol Direct 82 mg/dL (50-130) 06/01/19 16:31 HDL Cholesterol 48 mg/dL (40-59) 06/01/19 16:31 Cholesterol/HDL Ratio 2.93 % 06/01/19 16:31 TSH 0.907 mlU/mL (0.270-4.200) 06/01/19 16:31 Urine Color Yellow (Yellow) 06/07/19 18:00 Urine Turbidity Clear (Clear) 06/07/19 18:00 Urine pH 5.0 (5.0-7.0) 06/07/19 18:00 Ur Specific [place] 1.018 (1.003-1.030) 06/07/19 18:00 Urine Protein <15 mg/dl mg/dL (Negative) 06/07/19 18:00 Urine Glucose (UA) 150 mg/dL (Negative) 06/07/19 18:00 Urine Ketones Tr mg/dL (Negative) 06/07/19 18:00 Urine Blood Neg (Negative) 06/07/19 18:00 Urine Nitrite Neg (Negative) 06/07/19 18:00 Urine Bilirubin Neg (Negative) 06/07/19 18:00 Urine Urobilinogen < 2.0 mg/dL (<2.0) 06/07/19 18:00 Ur Leukocyte Esterase Neg (Negative) 06/07/19 18:00 Urine WBC (Auto) 1.0 /HPF (0.0-6.0) 06/07/19 18:00 Urine RBC (Auto) 1.0 /HPF (0.0-6.0) 06/07/19 18:00 Valproic Acid 66.1 ug/mL (50-100) 06/07/19 19:35 Core Measure Documentation - Palliative Care Palliative Care/ Comfort Measures: Not Applicable - Core Measures Any of the following diagnoses?: none Exam - Constitutional Vitals: Temp Pulse Resp BP Pulse Ox 99.0 F 95 H 18 141/85 100 06/07/19 19:03 06/08/19 09:48 06/07/19 19:03 06/08/19 09:48 06/08/19 09:44 General appearance: Present: no acute distress - EENT Eyes: Present: PERRL, EOM intact ENT: hearing intact, clear oral mucosa - Neck Neck: Present: supple, normal ROM - Respiratory Respiratory effort: normal - Integumentary Integumentary: Present: clear, warm, dry Plan Activity: advance as tolerated Weight Bearing Status: Weight Bear as Tolerated Care Plan Goals: MAINTAIN GOOD AND STABLE MENTAL HEALTH Plan of Treatment: The patient should be compliant with medications, not to use drugs and not to drink alcohol. The [facility] understands that if suicidal ideas, homicidal ideas, or any endangering thoughts/behavior arise, they should immediately seek for emergent assistance including but not limited to crisis hot line and emergency room. Follow up with outpatient Psychiatrist and PCP within 7 - 14 days of discharge. Health Concerns: DM, HTN, HYPERLIPERDEMIA Assessment: schizoaffective disorder, dementia w/ behavioral Follow up with: PRIMARY CARE, [Primary Care Provider] - 7 Days Prescriptions: Donepezil [Aricept] 10 mg PO QHS #30 Divalproex ER [Depakote ER] 500 mg PO QHS #30 traZODone [Desyrel] 50 mg PO QHS #30 tablet Pravastatin [Pravachol] 40 mg PO QHS #30 tablet Spironolactone [Aldactone] 12.5 mg PO QDAY #30 carvediloL [Coreg] 12.5 mg PO BID #60 Divalproex ER [Depakote ER] 250 mg PO DAILY #30 metFORMIN [Glucophage] 500 mg PO BID #60 glipiZIDE [Glucotrol] 5 mg PO BID #60 Furosemide [Lasix TAB] 40 mg PO BID #30 PARoxetine [Paxil] 50 mg PO QDAY #30 tablet risperiDONE [RisperDAL] 1 mg PO BID #60 tablet lisinopriL [Zestril TAB] 10 mg PO QDAY #30
--- NOTE | 2019-06-08 14:08 | Progress Note ---
Assessment and Plan Assessment and plan: Patient is a 68 yo man with a history of HTN, DM, Dementia, HLD, Bipolar, Schizophrenia who was admitted to geriatric psychiatry unit for medical stabilization. Hospitalist re-evaluated after CODE MET called today due to a brief period of unresponsiveness in the dayroom on [facility] unit as patient had a blank stare and eyes rolled back into his head but no incontinence reported. During this episode, bp was too low to register initially. AMS most likely orthostatic hypotension syncopal spell unlikely seizure but in differential: reduce lasix and Coreg HTN (hypertension): on Coreg 25 mg bid and lisinopril but sbp running low over last day or two, would reduce slightly HLD (hyperlipidemia) by history Diabetes mellitus type 2, not hypoglycemia: continue metformin Psychosis: psy managing ok to discharge to personal care from IM standpoint if sbp is 100 or greater. History Interval history: Patient was seen and examined. Follow-up on current diagnosis of AMS. Overnight uneventful. Patient denies any chest pain, shortness breath, nausea/vomiting or severe headaches. Imaging, nursing note, chart, labs and old chart reviewed. Discussed with patient. Hospitalist Physical - Physical exam Narrative exam: Gen: WDWN, NAD, Awake, Alert, Orientated x 1 HEENT: NCAT, EOMI, PERR but pinpoint, OP Clear Neck: supple, no adenopathy, no thyromegaly, no JVD CVS/Heart: RRR, normal S1S2, pulses present bilaterally Chest/Lungs: CTA B, Symmetrical chest expansion, good air entry bilaterally GI/Abdomen: soft, NTND, good bowel sounds, no guarding or rebound /Bladder: no suprapubic tenderness, no CVA or paraspinal tenderness Extermity/Skin: no c/c/e, no obvious rash MSK: FROM x 4 Neuro: CN 2-12 grossly intact, no new focal deficits, no drift, squeeze hand even Psych: calm - Constitutional Vitals: Temp Pulse Resp BP Pulse Ox 99.0 F 95 H 18 141/85 100 06/07/19 19:03 06/08/19 09:48 06/07/19 19:03 06/08/19 09:48 06/08/19 09:44 General appearance: Present: no acute distress Results - Labs CBC & Chem 7: 06/01/19 16:31 06/01/19 16:31 Labs: Laboratory Last Values WBC 5.6 K/mm3 (4.5-11.0) 06/01/19 16:31 RBC 4.45 M/mm3 (3.65-5.03) 06/01/19 16:31 Hgb 12.1 gm/dl (11.8-15.2) 06/01/19 16:31 Hct 37.7 % (35.5-45.6) 06/01/19 16:31 MCV 85 fl (84-94) 06/01/19 16:31 MCH 27 pg (28-32) L 06/01/19 16:31 MCHC 32 % (32-34) 06/01/19 16:31 RDW 16.1 % (13.2-15.2) H 06/01/19 16:31 Plt Count 331 K/mm3 (140-440) 06/01/19 16:31 Lymph % (Auto) 36.8 % (13.4-35.0) H 06/01/19 16:31 [place] % (Auto) 12.0 % (0.0-7.3) H 06/01/19 16:31 Eos % (Auto) 1.2 % (0.0-4.3) 06/01/19 16:31 Baso % (Auto) 0.8 % (0.0-1.8) 06/01/19 16:31 Lymph # 2.1 K/mm3 (1.2-5.4) 06/01/19 16:31 [place] # 0.7 K/mm3 (0.0-0.8) 06/01/19 16:31 Eos # 0.1 K/mm3 (0.0-0.4) 06/01/19 16:31 Baso # 0.0 K/mm3 (0.0-0.1) 06/01/19 16:31 Seg Neutrophils % 49.2 % (40.0-70.0) 06/01/19 16:31 Seg Neutrophils # 2.8 K/mm3 (1.8-7.7) 06/01/19 16:31 Sodium 141 mmol/L (137-145) 06/01/19 16:31 Potassium 4.4 mmol/L (3.6-5.0) 06/01/19 16:31 Chloride 99.9 mmol/L (98-107) 06/01/19 16:31 Carbon Dioxide 24 mmol/L (22-30) 06/01/19 16:31 Anion Gap 22 mmol/L 06/01/19 16:31 BUN 21 mg/dL (9-20) H 06/01/19 16:31 Creatinine 0.9 mg/dL (0.8-1.5) 06/01/19 16:31 Estimated GFR > 60 ml/min 06/01/19 16:31 BUN/Creatinine Ratio 23 % 06/01/19 16:31 Glucose 141 mg/dL (75-100) H 06/01/19 16:31 POC Glucose 205 (70-105) H 06/08/19 13:26 Hemoglobin A1c 7.8 % (4-6) H 06/01/19 16:31 Calcium 10.0 mg/dL (8.4-10.2) 06/01/19 16:31 Total Bilirubin 0.20 mg/dL (0.1-1.2) 06/01/19 16:31 AST 18 units/L (5-40) 06/01/19 16:31 ALT 9 units/L (7-56) 06/01/19 16:31 Alkaline Phosphatase 60 units/L (35-129) 06/01/19 16:31 Total Protein 8.2 g/dL (6.3-8.2) 06/01/19 16:31 Albumin 4.4 g/dL (3.9-5) 06/01/19 16:31 Albumin/Globulin Ratio 1.2 % 06/01/19 16:31 Triglycerides 78 mg/dL (2-149) 06/01/19 16:31 Cholesterol 141 mg/dL (50-199) 06/01/19 16:31 LDL Cholesterol Direct 82 mg/dL (50-130) 06/01/19 16:31 HDL Cholesterol 48 mg/dL (40-59) 06/01/19 16:31 Cholesterol/HDL Ratio 2.93 % 06/01/19 16:31 TSH 0.907 mlU/mL (0.270-4.200) 06/01/19 16:31 Urine Color Yellow (Yellow) 06/07/19 18:00 Urine Turbidity Clear (Clear) 06/07/19 18:00 Urine pH 5.0 (5.0-7.0) 06/07/19 18:00 Ur Specific [place] 1.018 (1.003-1.030) 06/07/19 18:00 Urine Protein <15 mg/dl mg/dL (Negative) 06/07/19 18:00 Urine Glucose (UA) 150 mg/dL (Negative) 06/07/19 18:00 Urine Ketones Tr mg/dL (Negative) 06/07/19 18:00 Urine Blood Neg (Negative) 06/07/19 18:00 Urine Nitrite Neg (Negative) 06/07/19 18:00 Urine Bilirubin Neg (Negative) 06/07/19 18:00 Urine Urobilinogen < 2.0 mg/dL (<2.0) 06/07/19 18:00 Ur Leukocyte Esterase Neg (Negative) 06/07/19 18:00 Urine WBC (Auto) 1.0 /HPF (0.0-6.0) 06/07/19 18:00 Urine RBC (Auto) 1.0 /HPF (0.0-6.0) 06/07/19 18:00 Valproic Acid 66.1 ug/mL (50-100) 06/07/19 19:35 Active Medications - Current Medications Current Medications: Generic Name Dose Route Start Last Admin Trade Name Freq PRN Reason Stop Dose Admin Carvedilol 12.5 mg 06/01/19 22:00 06/08/19 09:46 Coreg PO 12.5 mg BID MARIA D Administration Donepezil HCl 10 mg 06/01/19 22:00 06/07/19 22:22 Aricept PO 10 mg QHS MARIA D Administration Furosemide 40 mg 06/01/19 18:00 06/07/19 17:00 Lasix PO 40 mg 0600,1800 MARIA D Administration Glipizide 5 mg 06/01/19 17:00 06/08/19 08:17 Glucotrol PO 5 mg BIDDIAB MARIA D Administration Lisinopril 10 mg 06/02/19 10:00 06/08/19 09:47 Zestril PO 10 mg QDAY MARIA D Administration Melatonin 5 mg 06/01/19 12:04 Melatonin PO QHS PRN Sleep Metformin HCl 500 mg 06/01/19 17:00 06/08/19 08:17 Glucophage PO 500 mg BIDDIAB MARIA D Administration Olanzapine 5 mg 06/01/19 12:05 06/07/19 18:10 Zyprexa Zydis PO 5 mg Q6H PRN Administration Agitation Paroxetine HCl 50 mg 06/06/19 10:00 06/08/19 09:47 Paxil PO 50 mg QDAY MARIA D Administration Pravastatin Sodium 40 mg 06/06/19 22:00 06/07/19 22:01 Pravachol PO 40 mg QHS MARIA D Administration Risperidone 1 mg 06/01/19 22:00 06/08/19 09:47 Risperdal PO 1 mg BID MARIA D Administration Spironolactone 12.5 mg 06/02/19 10:00 06/08/19 09:48 Aldactone PO 12.5 mg QDAY MARIA D Administration Trazodone HCl 50 mg 06/06/19 22:00 06/08/19 05:01 Desyrel PO Not Given QHS [facility] Nutrition/Malnutrition Assess - Dietary Evaluation Nutrition/Malnutrition Findings: Nutrition Notes Start: 06/05/19 16:51 Freq: Status: Active Protocol: Document 06/07/19 15:14 LM (Rec: 06/07/19 15:15 LM [id number]) Nutrition Notes Need for Assessment generated from: Low BMI Initial or Follow up Brief Note Subjective/Other Information BMI corrected in chart. Pt with 100% intakes. Nutrition Intervention Revisit per MD consult or patient Sign Off request:
[2019-06-08 14:40] VITALS: BP 133/64
[2019-06-08] MEDS ORDERED: DIVALPROEX ER 500 MG TAB PO ONE (15:15)
[2019-06-08] MEDS ORDERED: carvediloL 12.5 MG TAB PO SCH (22:00)
[2019-06-08] MEDS ORDERED: DIVALPROEX ER 500 MG TAB PO SCH (22:00)
[2019-06-09] MEDS ORDERED: FUROSEMIDE 40 MG TAB PO SCH (10:00)
[2019-06-09] MEDS ORDERED: DIVALPROEX ER 250 MG TAB PO SCH (10:00)
== END 2019-06-08 17:44 | disposition home or self-care (01) | DRG 884 ==
LOC: UNDOADMIN 10:45 → 3A 10:45 → 5A 12:11
PROVIDERS: ADMIT Psychiatry & Neurology Psychiatry; ATTEND Psychiatry & Neurology Psychiatry
DX: F03.91 Unspecified dementia, unspecified severity, with behavioral disturbance (principal); F25.9 Schizoaffective disorder, unspecified; I10 Essential (primary) hypertension; E78.2 Mixed hyperlipidemia; E11.9 Type 2 diabetes mellitus without complications; Z88.8 Allergy status to other drugs, medicaments and biological substances; Z79.899 Other long term (current) drug therapy; Z82.49 Family history of ischemic heart disease and other diseases of the circulatory system; Z79.84 Long term (current) use of oral hypoglycemic drugs
CPT/HCPCS: 36415; 71046; 80053; 80061; 80164; 81001; 82962; 83036; 84443; 85025; 93005; 93010; G0378; A9270-GY; J1050